=== PATIENT | female | born 1945 | race Caucasian/White ===

== ENCOUNTER 2019-09-30 14:14 | Inpatient (IN) | payer OTHER ==
--- OUTSIDE RECORDS SUMMARY | 2019-09-30 14:25 | XMS REPORT | Clinical Summary ---
:1945 Author Organization [facility] Address [address] [place] [address] Care Team Providers Name Role Phone Jorden Milton MD Primary Care Provider Allergies Active Allergy Reactions Severity Noted Date Comments Atorvastatin 06/16/2016 Muscle cramps Prednisone 06/16/2016 Fluid retention Medications Medication Sig Dispensed Refills Start Date End Date Status enoxaparin (LOVENOX) Inject 1 mL (100 mg 60 mL 0 7 Active 100 mg/mL Syrg total) subcutaneously every 12 (twelve) hours. famotidine (PEPCID) Take 1 tablet (20 mg 60 tablet 0 7 Active 20 MG tablet total) by mouth 2 (two) times daily. Lactobacillus Take 1 tablet by 60 tablet 0 07/09/2016 Active acidoph-L.bulgar mouth 2 (two) times (FLORANEX) 1 million daily. cell Tab per tablet zinc Apply 30 g topically 1 Tube 0 07/09/2016 Active oxide-petrolatum 2 (two) times daily. 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 Last Filed Vital Signs Not on file Plan of Treatment Not on file Results Not on fileafter 09/29/2018 Insurance Payer Benefit Plan / Group Subscriber ID Type Phone A ddress MEDICARE MEDICARE A B xxxxxxxxxx Medicare Advance Directives For more information, please contact:[id number] [place], [place] [phone] Code Status Date Activated Date Inactivated Comments Full Code 07/05/2016 8:31 PM 07/09/2016 1:31 PM This code status was determined by: Patient Full Code 07/05/2016 8:31 PM 07/05/2016 8:31 PM This code status was determined by: Patient Full Code 06/20/2016 4:55 PM 07/05/2016 5:25 PM This code status was determined by: Patient Full Code 06/16/2016 10:45 AM 06/20/2016 4:55 PM This code status was determined by: Patient
--- OUTSIDE RECORDS SUMMARY | 2019-09-30 14:26 | XMS REPORT | Continuity of Care Document ---
:1945 Author Organization [facility] t Address [address] [place] [address] Care Team Providers Name Role Phone Jorden Milton MD Primary Care Physician OSMANY WARD Attending Clinician Unavailable YAO SIMON Attending Clinician Unavail able OSMANY WARD Admitting Clinician Unavailable FERMIN KHAN Admitting Clinician Unavailable YAO SIMON Admitting Clinician Unavail able Problems Condition Condition Condition Status Onset Resolution Last Treating Co mments Source Name Details Category Date Date Treatment Clinician Date Essential Essential Disease Active [facility] hypertensi hypertensi -23 Rubi kes - on on 00:00: Medical 00 [place] Oropharyng Oropharyng Disease Active [facility] dysphagia dysphagia 00:00: Medi [place] 00 [place] Cerebral Cerebral Disease [facility] - [facility] 00 [place] Acute Acute Disease Active [facility] encephalop encephalop -23 Rub[facility] kes - athy athy 00:00: Medical 00 [place] Stroke Stroke Disease Active [facility] (cerebrum[facility] (cerebrum) 4- Rubi kes - 00:00: Medical 00 Center Allergies, Adverse Reactions, Alerts Allergy Allergy Status Severity Reaction(s) Onset Inactive Treating Comm ents Source Name Type Date Date Clinician Atorvast Propensi Active Muscle [facility] at[facility] to 4-22 cramps [facility] - adverse 00:00: Medical reaction 00 [place] s Predniso Propensi Active Fluid [facility] ne [facility] to 4-22 retention [facility] - adverse 00:00: Medical reaction 00 Center s Social History Social Habit Start Date Stop Date Quantity Comments Source Sex Assigned At [facility] Alcohol Comment 2016-06-16 2016-06-16 with dinner KARTHIK Mcdermott ukes - 00:00:00 00:00:00 occasionally [facility] Smoking Status Start Date Stop Date Source Never smoker [facility] edical [place] Medications Ordered Filled Start Stop Current Ordering Indication Dosage Frequency Signature Comments Components Source Medication Medication Date Date Medication? Clinician (SIG) Name Name enoxaparin Yes 100mg Inject [address] (LOVENOX) 5-15 mL (100 mg Luke s - 100 mg/mL 00:00: total) Medica l Syrg 00 subcutaneo Center usly every 12 (twelve) hours. famotidine Yes 20mg Q.5D Take 1 [facility] (PEPCID) 20 5-15 tablet (20 Rubi kes - MG tablet 00:00: mg total) Med ical 00 by mouth 2 Center (two) times daily. Lactobacill Yes 1{tbl} Q.5D Take [address] us 5-15 tablet by [facility] - acidoph-L.b 00:00: mouth 2 Med ical ulgar 00 (two) Center (FLORANEX) times 1 million daily. cell Tab per tablet zinc Yes 30g Q.5D Apply [address] [facility] oxide-lazara 5-15 topically Pete es - latum 00:00: 2 (two) Medical (CRITIC-AID 00 times Center ) 20-51 % daily. Pste topical paste Immunizations Ordered Immunization Filled Immunization Date Status Commen ts Source Name Name Pneumococcal 2016-07-09 Completed [facility] - Polysaccharide 00:00:00 Medical Ce nter (Pneumovax) Procedures This patient has no known procedures. Results Test Description Test Time Test Comments Results Result Comments Source URINE CULTURE 2016-07-10 08:38:00 Test Item Value Reference Range Interpretation Comme nts CULTURE (BEAKER) (test code = ENTEROCOCCUS SPECIES A <10,000 col/mL Enterococcus 1095) species Ampicillin (test code = 26) S Ciprofloxacin (test code = 7) Clindamycin (test code = 10) Daptomycin (test code = 59) Erythromycin (test code = 4) Gentamicin (test code = 18) Gentamicin High Level Synergy (test code = 241) Levofloxacin (test code = 22) Linezolid (test code = 40) S Moxifloxacin (test code = 36) Nitrofurantoin (test code = 23) S Oxacillin (test code = 14) Rifampin (test code = 43) Streptomycin High Level Synergy (test code = 242) Tetracycline (test code = 2) S Tigecycline (test code = 133) Trimethoprim + Sulfamethoxazole (test code = 47) Vancomycin (test code = 13) S POCT-GLUCOSE [id number] 11:06:00 Test Item Value Reference Range Interpretation Comments POC-GLUCOSE METER 224 mg/dL 70-110 H TESTED AT [facility] 6720 (BEAKER) (test code = [place]AR[place] [place] 1538) [id number] BASIC METABOLIC [id number] 05:51:00 Test Item Value Reference Range Interpretation Comments SODIUM (BEAKER) 138 meq/L 136-145 (test code = 381) POTASSIUM (BEAKER) 4.6 meq/L 3.5-5.1 (test code = 379) CHLORIDE (BEAKER) 105 meq/L 98-107 (test code = 382) CO2 (BEAKER) (test 26 meq/L 22-29 code = 355) BLOOD UREA NITROGEN 20 mg/dL 7-21 (BEAKER) (test code = 354) CREATININE (BEAKER) 0.80 mg/dL 0.57-1.25 (test code = 358) GLUCOSE RANDOM 165 mg/dL 70-105 H (BEAKER) (test code = 652) CALCIUM (BEAKER) 9.1 mg/dL 8.4-10.2 (test code = 697) EGFR (BEAKER) (test 71 mL/min/1.73 ESTIMA GONZALEZ GFR IS code = 1092) sq m NOT ACCURATE CREATININE CLEARANCE IN PREDICTING GLOMERULAR FILTRATION RATE . ESTIMATED GFR I S NOT APPLICABLE FOR DIALYSIS PATIEN TS. CBC W/PLT COUNT & AUTO [id number] 05:37:00 Test Item Value Reference Range Interpretation Comments WHITE BLOOD CELL COUNT (BEAKER) 15.2 K/ L 4.0-10.0 H (test code = 775) RED BLOOD CELL COUNT (BEAKER) 3.95 M/ L 4.00-5.00 L (test code = 761) HEMOGLOBIN (BEAKER) (test code = 12.2 GM/DL 12.0-15.0 410) HEMATOCRIT (BEAKER) (test code = 37.4 % 36.0-45.0 411) MEAN CORPUSCULAR VOLUME (BEAKER) 94.8 fL 82.0-99.0 (test code = 753) MEAN CORPUSCULAR HEMOGLOBIN 30.8 pg 27.0-33.0 (BEAKER) (test code = 751) MEAN CORPUSCULAR HEMOGLOBIN CONC 32.5 GM/DL 32.0-36.0 (BEAKER) (test code = 752) RED CELL DISTRIBUTION WIDTH 12.7 % 10.3-14.2 (BEAKER) (test code = 412) PLATELET COUNT (BEAKER) (test 293 K/CU MM 150-430 code = 756) MEAN PLATELET VOLUME (BEAKER) 7.4 fL 6.5-10.5 (test code = 754) NUCLEATED RED BLOOD CELLS 0 /100 WBC 0-0 (BEAKER) (test code = 413) NEUTROPHILS RELATIVE PERCENT 68 % (BEAKER) (test code = 429) LYMPHOCYTES RELATIVE PERCENT 19 % (BEAKER) (test code = 430) MONOCYTES RELATIVE PERCENT 12 % (BEAKER) (test code = 431) EOSINOPHILS RELATIVE PERCENT 1 % (BEAKER) (test code = 432) BASOPHILS RELATIVE PERCENT 0 % (BEAKER) (test code = 437) NEUTROPHILS ABSOLUTE COUNT 10.30 K/ L 1.80-8.00 H (BEAKER) (test code = 670) LYMPHOCYTES ABSOLUTE COUNT 2.85 K/ L 1.48-4.50 (BEAKER) (test code = 414) MONOCYTES ABSOLUTE COUNT (BEAKER) 1.81 K/ L 0.00-1.30 H (test code = 415) EOSINOPHILS ABSOLUTE COUNT 0.21 K/ L 0.00-0.50 (BEAKER) (test code = 416) BASOPHILS ABSOLUTE COUNT (BEAKER) 0.05 K/ L 0.00-0.20 (test code = 417) 0.00POCT-GLUCOSE [id number] 20:33:00 Test Item Value Reference Range Interpretation Comments POC-GLUCOSE METER 177 mg/dL 70-110 H TESTED AT [facility] 6720 [facility] (test code = [place] 1538) [id number] POCT-GLUCOSE [id number] 16:45:00 Test Item Value Reference Range Interpretation Comments POC-GLUCOSE METER 192 mg/dL 70-110 H TESTED AT [facility] 6720 (BEAKER) (test code = FR[address] Pierce [place] 1538) [id number] POCT-GLUCOSE [id number] 12:00:00 Test Item Value Reference Range Interpretation Comments POC-GLUCOSE METER 238 mg/dL 70-110 H TESTED AT [facility] 6720 (BEAKER) (test code = FR[address] [place] 1538) [id number] POCT-GLUCOSE [id number] 06:31:00 Test Item Value Reference Range Interpretation Comments POC-GLUCOSE METER 222 mg/dL 70-110 H TESTED AT [facility] 6720 (BEAKER) (test code = FR[address] [place] 1538) [id number] COMPREHENSIVE METABOLIC [id number] 05:48:00 Test Item Value Reference Range Interpretation Comments TOTAL PROTEIN 5.9 gm/dL 6.0-8.3 L (BEAKER) (test code = 770) ALBUMIN (BEAKER) 2.8 g/dL 3.5-5.0 L (test code = 1145) ALKALINE PHOSPHATASE 108 U/L 40-150 (BEAKER) (test code = 346) BILIRUBIN TOTAL 0.4 mg/dL 0.2-1.2 (BEAKER) (test code = 377) SODIUM (BEAKER) (test 137 meq/L 136-145 code = 381) POTASSIUM (BEAKER) 4.2 meq/L 3.5-5.1 (test code = 379) CHLORIDE (BEAKER) 105 meq/L 98-107 (test code = 382) CO2 (BEAKER) (test 25 meq/L 22-29 code = 355) BLOOD UREA NITROGEN 18 mg/dL 7-21 (BEAKER) (test code = 354) CREATININE (BEAKER) 0.79 mg/dL 0.57-1.25 (test code = 358) GLUCOSE RANDOM 121 mg/dL 70-105 H (BEAKER) (test code = 652) CALCIUM (BEAKER) 8.8 mg/dL 8.4-10.2 (test code = 697) AST (SGOT) (BEAKER) 17 U/L 5-34 (test code = 353) ALT (SGPT) (BEAKER) 25 U/L 6-55 (test code = 347) EGFR (BEAKER) (test 72 mL/min/1.73 ESTIMA GONZALEZ GFR IS code = 1092) sq m NOT ACCURATE CREATININE CLEARANCE IN PREDICTING GLOMERULAR FILTRATION RATE . ESTIMATED GFR I S NOT APPLICABLE FOR DIALYSIS PATIEN TS. CBC W/PLT COUNT & AUTO [id number] 05:10:00 Test Item Value Reference Range Interpretation Comments WHITE BLOOD CELL COUNT (BEAKER) 16.0 K/ L 4.0-10.0 H (test code = 775) RED BLOOD CELL COUNT (BEAKER) 3.91 M/ L 4.00-5.00 L (test code = 761) HEMOGLOBIN (BEAKER) (test code = 12.3 GM/DL 12.0-15.0 410) HEMATOCRIT (BEAKER) (test code = 37.0 % 36.0-45.0 411) MEAN CORPUSCULAR VOLUME (BEAKER) 94.5 fL 82.0-99.0 (test code = 753) MEAN CORPUSCULAR HEMOGLOBIN 31.3 pg 27.0-33.0 (BEAKER) (test code = 751) MEAN CORPUSCULAR HEMOGLOBIN CONC 33.1 GM/DL 32.0-36.0 (BEAKER) (test code = 752) RED CELL DISTRIBUTION WIDTH 12.8 % 10.3-14.2 (BEAKER) (test code = 412) PLATELET COUNT (BEAKER) (test 296 K/CU MM 150-430 code = 756) MEAN PLATELET VOLUME (BEAKER) 7.2 fL 6.5-10.5 (test code = 754) NUCLEATED RED BLOOD CELLS 0 /100 WBC 0-0 (BEAKER) (test code = 413) NEUTROPHILS RELATIVE PERCENT 69 % (BEAKER) (test code = 429) LYMPHOCYTES RELATIVE PERCENT 18 % (BEAKER) (test code = 430) MONOCYTES RELATIVE PERCENT 12 % (BEAKER) (test code = 431) EOSINOPHILS RELATIVE PERCENT 1 % (BEAKER) (test code = 432) BASOPHILS RELATIVE PERCENT 0 % (BEAKER) (test code = 437) NEUTROPHILS ABSOLUTE COUNT 11.00 K/ L 1.80-8.00 H (BEAKER) (test code = 670) LYMPHOCYTES ABSOLUTE COUNT 2.90 K/ L 1.48-4.50 (BEAKER) (test code = 414) MONOCYTES ABSOLUTE COUNT (BEAKER) 1.89 K/ L 0.00-1.30 H (test code = 415) EOSINOPHILS ABSOLUTE COUNT 0.15 K/ L 0.00-0.50 (BEAKER) (test code = 416) BASOPHILS ABSOLUTE COUNT (BEAKER) 0.07 K/ L 0.00-0.20 (test code = 417) 0.00POCT-GLUCOSE [id number] 20:59:00 Test Item Value Reference Range Interpretation Comments POC-GLUCOSE METER 210 mg/dL 70-110 H TESTED AT [place] [address] [facility] (test code = [employer] [facility] Kari [facility] 1538) [id number] POCT-GLUCOSE [id number] 15:57:00 Test Item Value Reference Range Interpretation Comments POC-GLUCOSE METER 196 mg/dL 70-110 H TESTED AT [place] [address] ([facility]) (test code = [facility] 1538) [id number] POCT-GLUCOSE [id number] 12:12:00 Test Item Value Reference Range Interpretation Comments POC-GLUCOSE METER 187 mg/dL 70-110 H TESTED AT [place] [address] ([facility]) (test code = [facility] 1538) [id number] COMPREHENSIVE METABOLIC [id number] 08:02:00 Test Item Value Reference Range Interpretation Comments TOTAL PROTEIN 5.8 gm/dL 6.0-8.3 L (BEAKER) (test code = 770) ALBUMIN (BEAKER) 2.8 g/dL 3.5-5.0 L (test code = 1145) ALKALINE PHOSPHATASE 109 U/L 40-150 (BEAKER) (test code = 346) BILIRUBIN TOTAL 0.4 mg/dL 0.2-1.2 (BEAKER) (test code = 377) SODIUM (BEAKER) (test 138 meq/L 136-145 code = 381) POTASSIUM (BEAKER) 4.0 meq/L 3.5-5.1 (test code = 379) CHLORIDE (BEAKER) 107 meq/L 98-107 (test code = 382) CO2 (BEAKER) (test 24 meq/L 22-29 code = 355) BLOOD UREA NITROGEN 19 mg/dL 7-21 (BEAKER) (test code = 354) CREATININE (BEAKER) 0.76 mg/dL 0.57-1.25 (test code = 358) GLUCOSE RANDOM 170 mg/dL 70-105 H (BEAKER) (test code = 652) CALCIUM (BEAKER) 8.6 mg/dL 8.4-10.2 (test code = 697) AST (SGOT) (BEAKER) 19 U/L 5-34 (test code = 353) ALT (SGPT) (BEAKER) 30 U/L 6-55 (test code = 347) EGFR (BEAKER) (test 75 mL/min/1.73 ESTIMA GONZALEZ GFR IS code = 1092) sq m NOT ACCURATE CREATININE CLEARANCE IN PREDICTING GLOMERULAR FILTRATION RATE . ESTIMATED GFR I S NOT APPLICABLE FOR DIALYSIS PATIEN TS. CBC W/PLT COUNT & AUTO [id number] 07:54:00 Test Item Value Reference Range Interpretation Comments WHITE BLOOD CELL COUNT (BEAKER) 15.0 K/ L 4.0-10.0 H (test code = 775) RED BLOOD CELL COUNT (BEAKER) 3.88 M/ L 4.00-5.00 L (test code = 761) HEMOGLOBIN (BEAKER) (test code = 12.1 GM/DL 12.0-15.0 410) HEMATOCRIT (BEAKER) (test code = 36.6 % 36.0-45.0 411) MEAN CORPUSCULAR VOLUME (BEAKER) 94.5 fL 82.0-99.0 (test code = 753) MEAN CORPUSCULAR HEMOGLOBIN 31.2 pg 27.0-33.0 (BEAKER) (test code = 751) MEAN CORPUSCULAR HEMOGLOBIN CONC 33.1 GM/DL 32.0-36.0 (BEAKER) (test code = 752) RED CELL DISTRIBUTION WIDTH 12.8 % 10.3-14.2 (BEAKER) (test code = 412) PLATELET COUNT (BEAKER) (test 294 K/CU MM 150-430 code = 756) MEAN PLATELET VOLUME (BEAKER) 7.1 fL 6.5-10.5 (test code = 754) NUCLEATED RED BLOOD CELLS 0 /100 WBC 0-0 (BEAKER) (test code = 413) NEUTROPHILS RELATIVE PERCENT 73 % (BEAKER) (test code = 429) LYMPHOCYTES RELATIVE PERCENT 15 % (BEAKER) (test code = 430) MONOCYTES RELATIVE PERCENT 11 % (BEAKER) (test code = 431) EOSINOPHILS RELATIVE PERCENT 1 % (BEAKER) (test code = 432) BASOPHILS RELATIVE PERCENT 0 % (BEAKER) (test code = 437) NEUTROPHILS ABSOLUTE COUNT 10.90 K/ L 1.80-8.00 H (BEAKER) (test code = 670) LYMPHOCYTES ABSOLUTE COUNT 2.17 K/ L 1.48-4.50 (BEAKER) (test code = 414) MONOCYTES ABSOLUTE COUNT (BEAKER) 1.68 K/ L 0.00-1.30 H (test code = 415) EOSINOPHILS ABSOLUTE COUNT 0.13 K/ L 0.00-0.50 (BEAKER) (test code = 416) BASOPHILS ABSOLUTE COUNT (BEAKER) 0.04 K/ L 0.00-0.20 (test code = 417) 0.00POCT-GLUCOSE [id number] 06:51:00 Test Item Value Reference Range Interpretation Comments POC-GLUCOSE METER 194 mg/dL 70-110 H TESTED AT [place] [address] [facility] (test code = FR[place] Pierce [facility] 1538) [id number] POCT-GLUCOSE [id number] 20:28:00 Test Item Value Reference Range Interpretation Comments POC-GLUCOSE METER 161 mg/dL 70-110 H TESTED AT [place] [address] ([facility] (test code = FRANCIS Pierce [facility] 1538) [id number] URINALYSIS W/ [id number] 19:51:00 Test Item Value Reference Range Interpretation Comments COLOR (BEAKER) (test code Yellow = 470) CLARITY (BEAKER) (test Clear code = 469) SPECIFIC GRAVITY UA 1.024 1.001-1.035 (BEAKER) (test code = 468) PH UA (BEAKER) (test code 5.5 5.0-8.0 = 467) PROTEIN UA (BEAKER) (test 20 mg/dL Negative A code = 464) GLUCOSE UA (BEAKER) (test Negative Negative code = 365) KETONES UA (BEAKER) (test Negative Negative code = 371) BILIRUBIN UA (BEAKER) Negative Negative (test code = 462) BLOOD UA (BEAKER) (test Negative Negative code = 461) NITRITE UA (BEAKER) (test Negative Negative code = 465) LEUKOCYTE ESTERASE UA Large Negative A (BEAKER) (test code = 466) UROBILINOGEN UA (BEAKER) 0.2 mg/dL 0.2-1.0 (test code = 463) RBC UA (BEAKER) (test 1 /HPF code = 519) WBC UA (BEAKER) (test 51 /HPF code = 520) MUCUS (BEAKER) (test code Many = 1574) SOURCE(BEAKER) (test code Urine, Straight = 8620) Catheter POCT-GLUCOSE [id number] 16:01:00 Test Item Value Reference Range Interpretation Comments POC-GLUCOSE METER 166 mg/dL 70-110 H TESTED AT [facility] [address] [facility] (test code = [facility] 1538) [id number] POCT-GLUCOSE [id number] 11:13:00 Test Item Value Reference Range Interpretation Comments POC-GLUCOSE METER 182 mg/dL 70-110 H TESTED AT [place] [address] ([facility]) (test code = [facility] 1538) [address] POCT-GLUCOSE [id number] 07:05:00 Test Item Value Reference Range Interpretation Comments POC-GLUCOSE METER 125 mg/dL 70-110 H TESTED AT [place] [address] ([facility]) (test code = [facility] 1538) [id number] CBC W/PLT COUNT & AUTO [id number] 06:08:00 Test Item Value Reference Range Interpretation Comments WHITE BLOOD CELL COUNT (BEAKER) 20.1 K/ L 4.0-10.0 H (test code = 775) RED BLOOD CELL COUNT (BEAKER) 4.02 M/ L 4.00-5.00 (test code = 761) HEMOGLOBIN (BEAKER) (test code = 12.2 GM/DL 12.0-15.0 410) HEMATOCRIT (BEAKER) (test code = 37.2 % 36.0-45.0 411) MEAN CORPUSCULAR VOLUME (BEAKER) 92.6 fL 82.0-99.0 (test code = 753) MEAN CORPUSCULAR HEMOGLOBIN 30.3 pg 27.0-33.0 (BEAKER) (test code = 751) MEAN CORPUSCULAR HEMOGLOBIN CONC 32.7 GM/DL 32.0-36.0 (BEAKER) (test code = 752) RED CELL DISTRIBUTION WIDTH 13.3 % 10.3-14.2 (BEAKER) (test code = 412) PLATELET COUNT (BEAKER) (test 321 K/CU MM 150-430 code = 756) MEAN PLATELET VOLUME (BEAKER) 6.8 fL 6.5-10.5 (test code = 754) NUCLEATED RED BLOOD CELLS 0 /100 WBC 0-0 (BEAKER) (test code = 413) NEUTROPHILS RELATIVE PERCENT 81 % (BEAKER) (test code = 429) LYMPHOCYTES RELATIVE PERCENT 11 % (BEAKER) (test code = 430) MONOCYTES RELATIVE PERCENT 7 % (BEAKER) (test code = 431) EOSINOPHILS RELATIVE PERCENT 0 % (BEAKER) (test code = 432) BASOPHILS RELATIVE PERCENT 0 % (BEAKER) (test code = 437) NEUTROPHILS ABSOLUTE COUNT 16.20 K/ L 1.80-8.00 H (BEAKER) (test code = 670) LYMPHOCYTES ABSOLUTE COUNT 2.23 K/ L 1.48-4.50 (BEAKER) (test code = 414) MONOCYTES ABSOLUTE COUNT (BEAKER) 1.46 K/ L 0.00-1.30 H (test code = 415) EOSINOPHILS ABSOLUTE COUNT 0.07 K/ L 0.00-0.50 (BEAKER) (test code = 416) BASOPHILS ABSOLUTE COUNT (BEAKER) 0.05 K/ L 0.00-0.20 (test code = 417) 0.00BASIC METABOLIC [id number] 06:03:00 Test Item Value Reference Range Interpretation Comments SODIUM (BEAKER) 137 meq/L 136-145 (test code = 381) POTASSIUM (BEAKER) 4.0 meq/L 3.5-5.1 (test code = 379) CHLORIDE (BEAKER) 106 meq/L 98-107 (test code = 382) CO2 (BEAKER) (test 24 meq/L 22-29 code = 355) BLOOD UREA NITROGEN 14 mg/dL 7-21 (BEAKER) (test code = 354) CREATININE (BEAKER) 0.78 mg/dL 0.57-1.25 (test code = 358) GLUCOSE RANDOM 126 mg/dL 70-105 H (BEAKER) (test code = 652) CALCIUM (BEAKER) 9.0 mg/dL 8.4-10.2 (test code = 697) EGFR (BEAKER) (test 73 mL/min/1.73 ESTIMA GONZALEZ GFR IS code = 1092) sq m NOT ACCURATE CREATININE CLEARANCE IN PREDICTING GLOMERULAR FILTRATION RATE . ESTIMATED GFR I S NOT APPLICABLE FOR DIALYSIS PATIEN TS. POCT-GLUCOSE [id number] 20:20:00 Test Item Value Reference Range Interpretation Comments POC-GLUCOSE METER 95 mg/dL 70-110 TESTED AT [place] [address] ([facility]) (test code = FRANCIS Pierce [facility] [address] 1538) POCT-GLUCOSE [id number] 16:20:00 Test Item Value Reference Range Interpretation Comments POC-GLUCOSE METER 108 mg/dL 70-110 TESTED AT [place] [address] ([facility]) (test code = [facility] Kari [facility] 1538) [id number] POCT-GLUCOSE [id number] 10:57:00 Test Item Value Reference Range Interpretation Comments POC-GLUCOSE METER 176 mg/dL 70-110 H TESTED AT [place] [address] ([facility]) (test code = [facility] Kari [facility] 1538) [id number] PROTHROMBIN [id number] 05:52:00 Test Item Value Reference Range Interpretation Comments PROTIME ([facility]) (test code = 13.0 seconds 11.7-14.7 759) INR ([facility]) (test code = 370) 1.0 <=5.9 RECOMMENDED COUMADIN/WARFARIN INR THERAPY RANGESSTANDARD DOSE: 2.0 - 3.0 Includes: PROPHYLAXIS forvenous thrombosis, systemic embolization; TREATMENT for venous thrombosis and/or pulmonary embolus.HIGH RISK: Target INR is 2.5-3.5 for patients with mechanical heart valves.POCT-GLUCOSE [id number] 05:43:00 Test Item Value Reference Range Interpretation Comments POC-GLUCOSE METER 118 mg/dL 70-110 H TESTED AT [place] [address] ([facility]) (test code = FRANCIS Pierce [facility] 1538) [id number] POCT-GLUCOSE [id number] 20:30:00 Test Item Value Reference Range Interpretation Comments POC-GLUCOSE METER 122 mg/dL 70-110 H TESTED AT [place] [address] ([facility]) (test code = [facility] Kari [facility] 1538) [id number] POCT-GLUCOSE [id number] 16:20:00 Test Item Value Reference Range Interpretation Comments POC-GLUCOSE METER 117 mg/dL 70-110 H TESTED AT [place] [address] ([facility]) (test code = [facility] 1538) [id number] POCT-GLUCOSE [id number] 12:01:00 Test Item Value Reference Range Interpretation Comments POC-GLUCOSE METER 118 mg/dL 70-110 H TESTED AT [place] [address] ([facility]) (test code = FRANCIS Pierce [place] 1538) [id number] POCT-GLUCOSE [id number] 06:53:00 Test Item Value Reference Range Interpretation Comments POC-GLUCOSE METER 124 mg/dL 70-110 H TESTED AT [place] [address] ([facility]) (test code = FRANCIS Pierce [place] 1538) [id number] POCT-GLUCOSE [id number] 21:11:00 Test Item Value Reference Range Interpretation Comments POC-GLUCOSE METER 139 mg/dL 70-110 H TESTED AT [place] [address] ([facility]) (test code = FRANCIS Pierce [place] 1538) [id number] POCT-GLUCOSE [id number] 17:15:00 Test Item Value Reference Range Interpretation Comments POC-GLUCOSE METER 95 mg/dL 70-110 TESTED AT [place] [address] ([facility]) (test code = [place] [address]) POCT-GLUCOSE [id number] 11:21:00 Test Item Value Reference Range Interpretation Comments POC-GLUCOSE METER 157 mg/dL 70-110 H TESTED AT [place] [address] ([facility]) (test code = FRANCIS Pierce [place] 1538) [id number] POCT-GLUCOSE [id number] 06:40:00 Test Item Value Reference Range Interpretation Comments POC-GLUCOSE METER 121 mg/dL 70-110 H TESTED AT [place] [address] ([facility]) (test code = FRANCIS Pierce [place] 1538) [id number] POCT-GLUCOSE [id number] 21:01:00 Test Item Value Reference Range Interpretation Comments POC-GLUCOSE METER 151 mg/dL 70-110 H TESTED AT [place] [address] ([facility]) (test code = FRANCIS Pierce [place] 1538) [id number] POCT-GLUCOSE [id number] 16:26:00 Test Item Value Reference Range Interpretation Comments POC-GLUCOSE METER 139 mg/dL 70-110 H TESTED AT [place] [address] ([facility]) (test code = FRANCIS Pierce [place] 1538) [id number] POCT-GLUCOSE [id number] 11:04:00 Test Item Value Reference Range Interpretation Comments POC-GLUCOSE METER 241 mg/dL 70-110 H TESTED AT [facility] (BEAKER) (test code = FRANCIS Pierce [place] 1538) [id number] POCT-GLUCOSE [id number] 06:16:00 Test Item Value Reference Range Interpretation Comments POC-GLUCOSE METER 190 mg/dL 70-110 H TESTED AT [facility] (BEAKER) (test code = FRANCIS Pierce [place] 1538) [id number] BASIC METABOLIC [id number] 04:52:00 Test Item Value Reference Range Interpretation Comments SODIUM (BEAKER) 138 meq/L 136-145 (test code = 381) POTASSIUM (BEAKER) 3.9 meq/L 3.5-5.1 (test code = 379) CHLORIDE (BEAKER) 108 meq/L 98-107 H (test code = 382) CO2 (BEAKER) (test 23 meq/L 22-29 code = 355) BLOOD UREA NITROGEN 16 mg/dL 7-21 (BEAKER) (test code = 354) CREATININE (BEAKER) 0.81 mg/dL 0.57-1.25 (test code = 358) GLUCOSE RANDOM 174 mg/dL 70-105 H (BEAKER) (test code = 652) CALCIUM (BEAKER) 9.1 mg/dL 8.4-10.2 (test code = 697) EGFR (BEAKER) (test 70 mL/min/1.73 ESTIMA GONZALEZ GFR IS code = 1092) sq m NOT ACCURATE CREATININE CLEARANCE IN PREDICTING GLOMERULAR FILTRATION RATE . ESTIMATED GFR I S NOT APPLICABLE FOR DIALYSIS PATIEN TS. CBC W/PLT COUNT & AUTO [id number] 04:33:00 Test Item Value Reference Range Interpretation Comments WHITE BLOOD CELL COUNT (BEAKER) 15.5 K/ L 4.0-10.0 H (test code = 775) RED BLOOD CELL COUNT (BEAKER) 3.99 M/ L 4.00-5.00 L (test code = 761) HEMOGLOBIN (BEAKER) (test code = 12.1 GM/DL 12.0-15.0 410) HEMATOCRIT (BEAKER) (test code = 37.6 % 36.0-45.0 411) MEAN CORPUSCULAR VOLUME (BEAKER) 94.3 fL 82.0-99.0 (test code = 753) MEAN CORPUSCULAR HEMOGLOBIN 30.5 pg 27.0-33.0 (BEAKER) (test code = 751) MEAN CORPUSCULAR HEMOGLOBIN CONC 32.3 GM/DL 32.0-36.0 (BEAKER) (test code = 752) RED CELL DISTRIBUTION WIDTH 12.5 % 10.3-14.2 (BEAKER) (test code = 412) PLATELET COUNT (BEAKER) (test 339 K/CU MM 150-430 code = 756) MEAN PLATELET VOLUME (BEAKER) 6.9 fL 6.5-10.5 (test code = 754) NUCLEATED RED BLOOD CELLS 0 /100 WBC 0-0 (BEAKER) (test code = 413) NEUTROPHILS RELATIVE PERCENT 70 % (BEAKER) (test code = 429) LYMPHOCYTES RELATIVE PERCENT 19 % (BEAKER) (test code = 430) MONOCYTES RELATIVE PERCENT 9 % (BEAKER) (test code = 431) EOSINOPHILS RELATIVE PERCENT 2 % (BEAKER) (test code = 432) BASOPHILS RELATIVE PERCENT 0 % (BEAKER) (test code = 437) NEUTROPHILS ABSOLUTE COUNT 10.80 K/ L 1.80-8.00 H (BEAKER) (test code = 670) LYMPHOCYTES ABSOLUTE COUNT 3.01 K/ L 1.48-4.50 (BEAKER) (test code = 414) MONOCYTES ABSOLUTE COUNT (BEAKER) 1.37 K/ L 0.00-1.30 H (test code = 415) EOSINOPHILS ABSOLUTE COUNT 0.24 K/ L 0.00-0.50 (BEAKER) (test code = 416) BASOPHILS ABSOLUTE COUNT (BEAKER) 0.04 K/ L 0.00-0.20 (test code = 417) 0.00POCT-GLUCOSE [id number] 00:05:00 Test Item Value Reference Range Interpretation Comments POC-GLUCOSE METER 168 mg/dL 70-110 H TESTED AT [place] [address] ([facility]) (test code = [place] 1538) 25[address] POCT-GLUCOSE [id number] 16:40:00 Test Item Value Reference Range Interpretation Comments POC-GLUCOSE METER 107 mg/dL 70-110 TESTED AT [place] [address] ([facility]) (test code = [place] 1538) 48[address] POCT-GLUCOSE [id number] 11:26:00 Test Item Value Reference Range Interpretation Comments POC-GLUCOSE METER 209 mg/dL 70-110 H TESTED AT [place] [address] ([facility]) (test code = [place] 1538) 06[address] POCT-GLUCOSE [id number] 06:37:00 Test Item Value Reference Range Interpretation Comments POC-GLUCOSE METER 171 mg/dL 70-110 H TESTED AT [place] [address] ([facility]) (test code = FRANCIS Pierce [place] 1538) 48[address] POCT-GLUCOSE [id number] 20:41:00 Test Item Value Reference Range Interpretation Comments POC-GLUCOSE METER 126 mg/dL 70-110 H TESTED AT [place] [address] ([facility]) (test code = FRANCIS Pierce [place] 1538) 986[address] POCT-GLUCOSE [id number] 20:40:00 Test Item Value Reference Range Interpretation Comments POC-GLUCOSE METER 156 mg/dL 70-110 H TESTED AT [place] [address] ([facility]) (test code = FRANCIS [place] 1538) 28347 POCT-GLUCOSE [id number] 12:59:00 Test Item Value Reference Range Interpretation Comments POC-GLUCOSE METER 145 mg/dL 70-110 H TESTED AT [place] [address] ([facility]) (test code = FRANCIS Pierce [place] 1538) 14018 POCT-GLUCOSE [id number] 06:05:00 Test Item Value Reference Range Interpretation Comments POC-GLUCOSE METER 216 mg/dL 70-110 H TESTED AT [place] [address] ([facility]) (test code = FRANCIS Pierce [place] 1538) 53039 POCT-GLUCOSE [id number] 00:00:00 Test Item Value Reference Range Interpretation Comments POC-GLUCOSE METER 166 mg/dL 70-110 H TESTED AT [place] [address] ([facility]) (test code = FRANCIS Pierce [place] 1538) 00275 POCT-GLUCOSE [id number] 16:46:00 Test Item Value Reference Range Interpretation Comments POC-GLUCOSE METER 110 mg/dL 70-110 TESTED AT [place] [address] ([facility]) (test code = FRANCIS Pierce [place] 1538) 28975 POCT-GLUCOSE [id number] 12:05:00 Test Item Value Reference Range Interpretation Comments POC-GLUCOSE METER 144 mg/dL 70-110 H TESTED AT [place] [address] ([facility]) (test code = FRANCIS Pierce [place] 1538) 7[address] POCT-GLUCOSE [id number] 06:29:00 Test Item Value Reference Range Interpretation Comments POC-GLUCOSE METER 185 mg/dL 70-110 H TESTED AT [place] [address] ([facility]) (test code = [place] 1538) 70079 POCT-GLUCOSE [id number] 23:55:00 Test Item Value Reference Range Interpretation Comments POC-GLUCOSE METER 148 mg/dL 70-110 H TESTED AT [place] [address] ([facility]) (test code = FRANCIS Pierce [place] 1538) 92288 POCT-GLUCOSE [id number] 16:52:00 Test Item Value Reference Range Interpretation Comments POC-GLUCOSE METER 122 mg/dL 70-110 H TESTED AT [place] [address] ([facility]) (test code = FRANCIS Pierce [facility] 1538) 6[address]60 POCT-GLUCOSE [id number] 12:52:00 Test Item Value Reference Range Interpretation Comments POC-GLUCOSE METER 153 mg/dL 70-110 H TESTED AT [place] [address] ([facility]) (test code = FRANCIS Pierce [facility] 1538) 24035 POCT-GLUCOSE [id number] 06:18:00 Test Item Value Reference Range Interpretation Comments POC-GLUCOSE METER 190 mg/dL 70-110 H TESTED AT [place] [address] ([facility]) (test code = FRANCIS Pierce [facility] 1538) 61985 POCT-GLUCOSE [id number] 23:54:00 Test Item Value Reference Range Interpretation Comments POC-GLUCOSE METER 183 mg/dL 70-110 H TESTED AT [place] [address] ([facility]) (test code = FRANCIS Pierce [facility] 1538) 91261 POCT-GLUCOSE [id number] 16:00:00 Test Item Value Reference Range Interpretation Comments POC-GLUCOSE METER 151 mg/dL 70-110 H TESTED AT [place] [address] ([facility]) (test code = FRANCIS Pierce [place] 1538) 38316 POCT-GLUCOSE [id number] 12:22:00 Test Item Value Reference Range Interpretation Comments POC-GLUCOSE METER 160 mg/dL 70-110 H TESTED AT [place] [address] ([facility]) (test code = FRANCIS Pierce [place] 1538) 43404 POCT-GLUCOSE [id number] 06:19:00 Test Item Value Reference Range Interpretation Comments POC-GLUCOSE METER 172 mg/dL 70-110 H TESTED AT [place] [address] ([facility]) (test code = FRANCIS Pierce [place] 1538) 02386 POCT-GLUCOSE [id number] 00:08:00 Test Item Value Reference Range Interpretation Comments POC-GLUCOSE METER 154 mg/dL 70-110 H TESTED AT [place] [address] ([facility]) (test code = FRANCIS Pierce [place] 1538) 05646 POCT-GLUCOSE [id number] 16:33:00 Test Item Value Reference Range Interpretation Comments POC-GLUCOSE METER 107 mg/dL 70-110 TESTED AT [place] [address] ([facility]) (test code = FRANCIS Pierce [place] 1538) 80668 POCT-GLUCOSE [id number] 11:18:00 Test Item Value Reference Range Interpretation Comments POC-GLUCOSE METER 198 mg/dL 70-110 H TESTED AT [place] [address] ([facility]) (test code = FRANCIS Pierce [place] 1538) 19439 POCT-GLUCOSE [id number] 06:31:00 Test Item Value Reference Range Interpretation Comments POC-GLUCOSE METER 209 mg/dL 70-110 H TESTED AT [place] [address] ([facility]) (test code = FRANCIS Pierce [place] 1538) 29963 POCT-GLUCOSE [id number] 00:18:00 Test Item Value Reference Range Interpretation Comments POC-GLUCOSE METER 173 mg/dL 70-110 H TESTED AT [place] [address] ([facility]) (test code = FRANC[place] 1538) 57562 POCT-GLUCOSE [id number] 20:31:00 Test Item Value Reference Range Interpretation Comments POC-GLUCOSE METER 145 mg/dL 70-110 H TESTED AT [place] [address] ([facility]) (test code = FRANCIS Pierce [place] 1538) 55146 POCT-GLUCOSE [id number] 16:49:00 Test Item Value Reference Range Interpretation Comments POC-GLUCOSE METER 153 mg/dL 70-110 H TESTED AT [place] [address] ([facility]) (test code = FRANCIS [place] 1538) 23491 POCT-GLUCOSE [id number] 11:40:00 Test Item Value Reference Range Interpretation Comments POC-GLUCOSE METER 144 mg/dL 70-110 H TESTED AT [facility] 6720 (BEAKER) (test code = [place] 1538) 688[address] BASIC METABOLIC [id number] 06:52:00 Test Item Value Reference Range Interpretation Comments SODIUM (BEAKER) 139 meq/L 136-145 (test code = 381) POTASSIUM (BEAKER) 4.3 meq/L 3.5-5.1 (test code = 379) CHLORIDE (BEAKER) 107 meq/L 98-107 (test code = 382) CO2 (BEAKER) (test 24 meq/L 22-29 code = 355) BLOOD UREA NITROGEN 22 mg/dL 7-21 H (BEAKER) (test code = 354) CREATININE (BEAKER) 0.75 mg/dL 0.57-1.25 (test code = 358) GLUCOSE RANDOM 170 mg/dL 70-105 H (BEAKER) (test code = 652) CALCIUM (BEAKER) 8.7 mg/dL 8.4-10.2 (test code = 697) EGFR (BEAKER) (test 77 mL/min/1.73 ESTIMA GONZALEZ GFR IS code = 1092) sq m NOT ACCURATE CREATININE CLEARANCE IN PREDICTING GLOMERULAR FILTRATION RATE . ESTIMATED GFR I S NOT APPLICABLE FOR DIALYSIS PATIEN TS. CBC W/PLT COUNT & AUTO [id number] 06:48:00 Test Item Value Reference Range Interpretation Comments WHITE BLOOD CELL COUNT (BEAKER) 12.4 K/ L 4.0-10.0 H (test code = 775) RED BLOOD CELL COUNT (BEAKER) 4.06 M/ L 4.00-5.00 (test code = 761) HEMOGLOBIN (BEAKER) (test code = 12.3 GM/DL 12.0-15.0 410) HEMATOCRIT (BEAKER) (test code = 38.5 % 36.0-45.0 411) MEAN CORPUSCULAR VOLUME (BEAKER) 94.7 fL 82.0-99.0 (test code = 753) MEAN CORPUSCULAR HEMOGLOBIN 30.3 pg 27.0-33.0 (BEAKER) (test code = 751) MEAN CORPUSCULAR HEMOGLOBIN CONC 32.0 GM/DL 32.0-36.0 (BEAKER) (test code = 752) RED CELL DISTRIBUTION WIDTH 12.3 % 10.3-14.2 (BEAKER) (test code = 412) PLATELET COUNT (BEAKER) (test 243 K/CU MM 150-430 code = 756) MEAN PLATELET VOLUME (BEAKER) 7.5 fL 6.5-10.5 (test code = 754) NUCLEATED RED BLOOD CELLS 0 /100 WBC 0-0 (BEAKER) (test code = 413) NEUTROPHILS RELATIVE PERCENT 63 % (BEAKER) (test code = 429) LYMPHOCYTES RELATIVE PERCENT 18 % (BEAKER) (test code = 430) MONOCYTES RELATIVE PERCENT 16 % (BEAKER) (test code = 431) EOSINOPHILS RELATIVE PERCENT 3 % (BEAKER) (test code = 432) BASOPHILS RELATIVE PERCENT 1 % (BEAKER) (test code = 437) NEUTROPHILS ABSOLUTE COUNT 7.88 K/ L 1.80-8.00 (BEAKER) (test code = 670) LYMPHOCYTES ABSOLUTE COUNT 2.20 K/ L 1.48-4.50 (BEAKER) (test code = 414) MONOCYTES ABSOLUTE COUNT (BEAKER) 1.95 K/ L 0.00-1.30 H (test code = 415) EOSINOPHILS ABSOLUTE COUNT 0.35 K/ L 0.00-0.50 (BEAKER) (test code = 416) BASOPHILS ABSOLUTE COUNT (BEAKER) 0.06 K/ L 0.00-0.20 (test code = 417) 0.00POCT-GLUCOSE [id number] 06:20:00 Test Item Value Reference Range Interpretation Comments POC-GLUCOSE METER 189 mg/dL 70-110 H TESTED AT [place] [address] ([facility] (test code = FRANCIS Pierce [facility] 1538) 73873 POCT-GLUCOSE [id number] 00:12:00 Test Item Value Reference Range Interpretation Comments POC-GLUCOSE METER 187 mg/dL 70-110 H TESTED AT [place] [address] ([facility]) (test code = FRANCIS Pierce [facility] 1538) 77462 POCT-GLUCOSE [id number] 16:30:00 Test Item Value Reference Range Interpretation Comments POC-GLUCOSE METER 146 mg/dL 70-110 H TESTED AT [place] [address] ([facility]) (test code = FRANCIS Pierce [facility] 1538) 52087 POCT-GLUCOSE [id number] 11:07:00 Test Item Value Reference Range Interpretation Comments POC-GLUCOSE METER 165 mg/dL 70-110 H TESTED AT [place] [address] ([facility]) (test code = FR[place] 1538) 77504 POCT-GLUCOSE [id number] 06:10:00 Test Item Value Reference Range Interpretation Comments POC-GLUCOSE METER 210 mg/dL 70-110 H TESTED AT [place] [address] ([facility]) (test code = FRANCIS [place] 1538) 95381 POCT-GLUCOSE [id number] 00:43:00 Test Item Value Reference Range Interpretation Comments POC-GLUCOSE METER 163 mg/dL 70-110 H TESTED AT [place] [address] ([facility]) (test code = FR[place] 1538) 56593 POCT-GLUCOSE [id number] 16:33:00 Test Item Value Reference Range Interpretation Comments POC-GLUCOSE METER 177 mg/dL 70-110 H TESTED AT [place] [address] ([facility]) (test code = FRANC[place] 1538) 24545 POCT-GLUCOSE [id number] 10:58:00 Test Item Value Reference Range Interpretation Comments POC-GLUCOSE METER 151 mg/dL 70-110 H TESTED AT [place] [address] ([facility]) (test code = FRANC[place] 1538) 44585 POCT-GLUCOSE [id number] 06:30:00 Test Item Value Reference Range Interpretation Comments POC-GLUCOSE METER 176 mg/dL 70-110 H TESTED AT [place] [address] ([facility]) (test code = FRANCIS [place] 1538) 42374 POCT-GLUCOSE [id number] 02:01:00 Test Item Value Reference Range Interpretation Comments POC-GLUCOSE METER 188 mg/dL 70-110 H TESTED AT [place] [address] ([facility]) (test code = FRANC[place] 1538) 77816 POCT-GLUCOSE [id number] 16:33:00 Test Item Value Reference Range Interpretation Comments POC-GLUCOSE METER 162 mg/dL 70-110 H TESTED AT [place] [address] ([facility]) (test code = FRANCIS [place] 1538) 42319 POCT-GLUCOSE [id number] 11:05:00 Test Item Value Reference Range Interpretation Comments POC-GLUCOSE METER 173 mg/dL 70-110 H TESTED AT [place] [address] ([facility]) (test code = FRANCIS Pierce [facility] 1538) 82153 POCT-GLUCOSE [id number] 06:27:00 Test Item Value Reference Range Interpretation Comments POC-GLUCOSE METER 162 mg/dL 70-110 H TESTED AT [facility] 6720 (BEAKER) (test code = FRANCIS Pierce [facility] 1538) 26987 POCT-GLUCOSE [id number] 00:11:00 Test Item Value Reference Range Interpretation Comments POC-GLUCOSE METER 161 mg/dL 70-110 H TESTED AT [place] [address] (BEAKER) (test code = FRANCIS Pierce [facility] 1538) 14380 POCT-GLUCOSE [id number] 17:29:00 Test Item Value Reference Range Interpretation Comments POC-GLUCOSE METER 155 mg/dL 70-110 H TESTED AT [place] [address] ([facility] (test code = FRANCIS Pierce [facility] 1538) 12846 POCT-GLUCOSE [id number] 12:06:00 Test Item Value Reference Range Interpretation Comments POC-GLUCOSE METER 163 mg/dL 70-110 H TESTED AT [place] [address] ([facility] (test code = FRANCIS Pierce [facility] 1538) 95544 COMPREHENSIVE METABOLIC [id number] 07:08:00 Test Item Value Reference Range Interpretation Comments TOTAL PROTEIN 5.9 gm/dL 6.0-8.3 L (BEAKER) (test code = 770) ALBUMIN (BEAKER) 3.2 g/dL 3.5-5.0 L (test code = 1145) ALKALINE PHOSPHATASE 86 U/L 40-150 (BEAKER) (test code = 346) BILIRUBIN TOTAL 0.4 mg/dL 0.2-1.2 (BEAKER) (test code = 377) SODIUM (BEAKER) (test 142 meq/L 136-145 code = 381) POTASSIUM (BEAKER) 3.9 meq/L 3.5-5.1 (test code = 379) CHLORIDE (BEAKER) 112 meq/L 98-107 H (test code = 382) CO2 (BEAKER) (test 21 meq/L 22-29 L code = 355) BLOOD UREA NITROGEN 22 mg/dL 7-21 H (BEAKER) (test code = 354) CREATININE (BEAKER) 0.81 mg/dL 0.57-1.25 (test code = 358) GLUCOSE RANDOM 155 mg/dL 70-105 H (BEAKER) (test code = 652) CALCIUM (BEAKER) 8.9 mg/dL 8.4-10.2 (test code = 697) AST (SGOT) (BEAKER) 41 U/L 5-34 H (test code = 353) ALT (SGPT) (BEAKER) 75 U/L 6-55 H (test code = 347) EGFR (BEAKER) (test 70 mL/min/1.73 ESTIMA GONZALEZ GFR IS code = 1092) sq m NOT ACCURATE CREATININE CLEARANCE IN PREDICTING GLOMERULAR FILTRATION RATE . ESTIMATED GFR I S NOT APPLICABLE FOR DIALYSIS PATIEN TS. CBC W/PLT COUNT & AUTO [id number] 07:01:00 Test Item Value Reference Range Interpretation Comments WHITE BLOOD CELL COUNT (BEAKER) 12.5 K/ L 4.0-10.0 H (test code = 775) RED BLOOD CELL COUNT (BEAKER) 4.25 M/ L 4.00-5.00 (test code = 761) HEMOGLOBIN (BEAKER) (test code = 13.0 GM/DL 12.0-15.0 410) HEMATOCRIT (BEAKER) (test code = 39.8 % 36.0-45.0 411) MEAN CORPUSCULAR VOLUME (BEAKER) 93.6 fL 82.0-99.0 (test code = 753) MEAN CORPUSCULAR HEMOGLOBIN 30.5 pg 27.0-33.0 (BEAKER) (test code = 751) MEAN CORPUSCULAR HEMOGLOBIN CONC 32.5 GM/DL 32.0-36.0 (BEAKER) (test code = 752) RED CELL DISTRIBUTION WIDTH 13.4 % 10.3-14.2 (BEAKER) (test code = 412) PLATELET COUNT (BEAKER) (test 218 K/CU MM 150-430 code = 756) MEAN PLATELET VOLUME (BEAKER) 7.2 fL 6.5-10.5 (test code = 754) NUCLEATED RED BLOOD CELLS 0 /100 WBC 0-0 (BEAKER) (test code = 413) NEUTROPHILS RELATIVE PERCENT 67 % (BEAKER) (test code = 429) LYMPHOCYTES RELATIVE PERCENT 18 % (BEAKER) (test code = 430) MONOCYTES RELATIVE PERCENT 13 % (BEAKER) (test code = 431) EOSINOPHILS RELATIVE PERCENT 1 % (BEAKER) (test code = 432) BASOPHILS RELATIVE PERCENT 0 % (BEAKER) (test code = 437) NEUTROPHILS ABSOLUTE COUNT 8.37 K/ L 1.80-8.00 H (BEAKER) (test code = 670) LYMPHOCYTES ABSOLUTE COUNT 2.26 K/ L 1.48-4.50 (BEAKER) (test code = 414) MONOCYTES ABSOLUTE COUNT (BEAKER) 1.65 K/ L 0.00-1.30 H (test code = 415) EOSINOPHILS ABSOLUTE COUNT 0.19 K/ L 0.00-0.50 (BEAKER) (test code = 416) BASOPHILS ABSOLUTE COUNT (BEAKER) 0.06 K/ L 0.00-0.20 (test code = 417) 0.00PROTHROMBIN [id number] 06:37:00 Test Item Value Reference Range Interpretation Comments PROTIME ([facility] (test code = 13.4 seconds 11.7-14.7 759) INR ([facility]) (test code = 370) 1.0 <=5.9 RECOMMENDED COUMADIN/WARFARIN INR THERAPY RANGESSTANDARD DOSE: 2.0 - 3.0 Includes: PROPHYLAXIS forvenous thrombosis, systemic embolization; TREATMENT for venous thrombosis and/or pulmonary embolus.HIGH RISK: Target INR is 2.5-3.5 for patients with mechanical heart valves.POCT-GLUCOSE [id number] 06:02:00 Test Item Value Reference Range Interpretation Comments POC-GLUCOSE METER 147 mg/dL 70-110 H TESTED AT [place] [address] ([facility]) (test code = FRANCIS Pierce [facility] 1538) 21472 POCT-GLUCOSE [id number] 00:05:00 Test Item Value Reference Range Interpretation Comments POC-GLUCOSE METER 117 mg/dL 70-110 H TESTED AT [place] [address] ([facility]) (test code = FRANCIS Pierce [place] 1538) 26978 POCT-GLUCOSE [id number] 17:27:00 Test Item Value Reference Range Interpretation Comments POC-GLUCOSE METER 112 mg/dL 70-110 H TESTED AT [place] [address] ([facility]) (test code = FRANCIS Pierce [facility] 1538) 02847 POCT-GLUCOSE [id number] 12:08:00 Test Item Value Reference Range Interpretation Comments POC-GLUCOSE METER 154 mg/dL 70-110 H TESTED AT [place] [address] (BEAKER) (test code = [place] 1538) 25053 URINE [id number] 11:40:00 Test Item Value Reference Range Interpretation Comments CULTURE (BEAKER) (test code = 1095) No growth CBC W/PLT COUNT & AUTO [id number] 06:41:00 Test Item Value Reference Range Interpretation Comments WHITE BLOOD CELL COUNT (BEAKER) 12.9 K/ L 4.0-10.0 H (test code = 775) RED BLOOD CELL COUNT (BEAKER) 4.51 M/ L 4.00-5.00 (test code = 761) HEMOGLOBIN (BEAKER) (test code = 13.6 GM/DL 12.0-15.0 410) HEMATOCRIT (BEAKER) (test code = 43.0 % 36.0-45.0 411) MEAN CORPUSCULAR VOLUME (BEAKER) 95.5 fL 82.0-99.0 (test code = 753) MEAN CORPUSCULAR HEMOGLOBIN 30.1 pg 27.0-33.0 (BEAKER) (test code = 751) MEAN CORPUSCULAR HEMOGLOBIN CONC 31.5 GM/DL 32.0-36.0 L (BEAKER) (test code = 752) RED CELL DISTRIBUTION WIDTH 12.8 % 10.3-14.2 (BEAKER) (test code = 412) PLATELET COUNT (BEAKER) (test 257 K/CU MM 150-430 code = 756) MEAN PLATELET VOLUME (BEAKER) 7.3 fL 6.5-10.5 (test code = 754) NUCLEATED RED BLOOD CELLS 0 /100 WBC 0-0 (BEAKER) (test code = 413) NEUTROPHILS RELATIVE PERCENT 68 % (BEAKER) (test code = 429) LYMPHOCYTES RELATIVE PERCENT 17 % (BEAKER) (test code = 430) MONOCYTES RELATIVE PERCENT 14 % (BEAKER) (test code = 431) EOSINOPHILS RELATIVE PERCENT 1 % (BEAKER) (test code = 432) BASOPHILS RELATIVE PERCENT 0 % (BEAKER) (test code = 437) NEUTROPHILS ABSOLUTE COUNT 8.76 K/ L 1.80-8.00 H (BEAKER) (test code = 670) LYMPHOCYTES ABSOLUTE COUNT 2.21 K/ L 1.48-4.50 (BEAKER) (test code = 414) MONOCYTES ABSOLUTE COUNT (BEAKER) 1.74 K/ L 0.00-1.30 H (test code = 415) EOSINOPHILS ABSOLUTE COUNT 0.12 K/ L 0.00-0.50 (BEAKER) (test code = 416) BASOPHILS ABSOLUTE COUNT (BEAKER) 0.04 K/ L 0.00-0.20 (test code = 417) 0.00POCT-GLUCOSE [id number] 06:03:00 Test Item Value Reference Range Interpretation Comments POC-GLUCOSE METER 134 mg/dL 70-110 H TESTED AT [place] [address] ([facility] (test code = [facility] 1538) 276[address] BASIC METABOLIC [id number] 05:45:00 Test Item Value Reference Range Interpretation Comments SODIUM (BEAKER) 142 meq/L 136-145 (test code = 381) POTASSIUM (BEAKER) 4.3 meq/L 3.5-5.1 Specimen slightly (test code = 379) hemolyzed CHLORIDE (BEAKER) 113 meq/L 98-107 H (test code = 382) CO2 (BEAKER) (test 17 meq/L 22-29 L code = 355) BLOOD UREA NITROGEN 25 mg/dL 7-21 H (BEAKER) (test code = 354) CREATININE (BEAKER) 0.87 mg/dL 0.57-1.25 Specimen slightly (test code = 358) hemolyzed GLUCOSE RANDOM 136 mg/dL 70-105 H (BEAKER) (test code = 652) CALCIUM (BEAKER) 9.1 mg/dL 8.4-10.2 (test code = 697) EGFR (BEAKER) (test 65 mL/min/1.73 ESTIMA GONZALEZ GFR IS code = 1092) sq m NOT ACCURATE CREATININE CLEARANCE IN PREDICTING GLOMERULAR FILTRATION RATE . ESTIMATED GFR I S NOT APPLICABLE FOR DIALYSIS PATIEN TS. POCT-GLUCOSE [id number] 23:39:00 Test Item Value Reference Range Interpretation Comments POC-GLUCOSE METER 143 mg/dL 70-110 H TESTED AT [place] [address] [facility] (test code = [facility] 1538) [id number] POCT-GLUCOSE [id number] 18:14:00 Test Item Value Reference Range Interpretation Comments POC-GLUCOSE METER 149 mg/dL 70-110 H TESTED AT [place] [address] ([facility] (test code = [facility] 1538) [id number] POCT-GLUCOSE [id number] 11:39:00 Test Item Value Reference Range Interpretation Comments POC-GLUCOSE METER 162 mg/dL 70-110 H TESTED AT [facility] 6720 (BEAKER) (test code = [facility] 1538) [id number] CBC W/PLT COUNT & AUTO [id number] 11:08:00 Test Item Value Reference Range Interpretation Comments WHITE BLOOD CELL COUNT (BEAKER) 13.1 K/ L 4.0-10.0 H (test code = 775) RED BLOOD CELL COUNT (BEAKER) 4.65 M/ L 4.00-5.00 (test code = 761) HEMOGLOBIN (BEAKER) (test code = 14.5 GM/DL 12.0-15.0 410) HEMATOCRIT (BEAKER) (test code = 43.6 % 36.0-45.0 411) MEAN CORPUSCULAR VOLUME (BEAKER) 93.7 fL 82.0-99.0 (test code = 753) MEAN CORPUSCULAR HEMOGLOBIN 31.2 pg 27.0-33.0 (BEAKER) (test code = 751) MEAN CORPUSCULAR HEMOGLOBIN CONC 33.3 GM/DL 32.0-36.0 (BEAKER) (test code = 752) RED CELL DISTRIBUTION WIDTH 12.6 % 10.3-14.2 (BEAKER) (test code = 412) PLATELET COUNT (BEAKER) (test 243 K/CU MM 150-430 code = 756) MEAN PLATELET VOLUME (BEAKER) 6.9 fL 6.5-10.5 (test code = 754) NUCLEATED RED BLOOD CELLS 0 /100 WBC 0-0 (BEAKER) (test code = 413) NEUTROPHILS RELATIVE PERCENT 72 % (BEAKER) (test code = 429) LYMPHOCYTES RELATIVE PERCENT 14 % (BEAKER) (test code = 430) MONOCYTES RELATIVE PERCENT 13 % (BEAKER) (test code = 431) EOSINOPHILS RELATIVE PERCENT 0 % (BEAKER) (test code = 432) BASOPHILS RELATIVE PERCENT 1 % (BEAKER) (test code = 437) NEUTROPHILS ABSOLUTE COUNT 9.47 K/ L 1.80-8.00 H (BEAKER) (test code = 670) LYMPHOCYTES ABSOLUTE COUNT 1.81 K/ L 1.48-4.50 (BEAKER) (test code = 414) MONOCYTES ABSOLUTE COUNT (BEAKER) 1.70 K/ L 0.00-1.30 H (test code = 415) EOSINOPHILS ABSOLUTE COUNT 0.04 K/ L 0.00-0.50 (BEAKER) (test code = 416) BASOPHILS ABSOLUTE COUNT (BEAKER) 0.08 K/ L 0.00-0.20 (test code = 417) 0.00POCT-GLUCOSE [id number] 05:42:00 Test Item Value Reference Range Interpretation Comments POC-GLUCOSE METER 134 mg/dL 70-110 H TEST[facility] AT [place] [address] [facility] (test code = [facility] 1538) [id number] POCT-GLUCOSE [id number] 00:45:00 Test Item Value Reference Range Interpretation Comments POC-GLUCOSE METER 95 mg/dL 70-110 TESTED AT [place] [address] ([facility]) (test code = [facility] [address] 1538) POCT-GLUCOSE [id number] 17:43:00 Test Item Value Reference Range Interpretation Comments POC-GLUCOSE METER 109 mg/dL 70-110 TESTED AT [place] [address] ([facility]) (test code = [facility] 1538) [id number] POCT-GLUCOSE [id number] 13:03:00 Test Item Value Reference Range Interpretation Comments POC-GLUCOSE METER 77 mg/dL 70-110 TESTED AT [place] [address] ([facility]) (test code = [facility] [address] 1538) URINALYSIS W/ REFLEX URINE [id number] 12:57:00 Test Item Value Reference Range Interpretation Comments COLOR (BEAKER) (test code = 470) Yellow CLARITY (BEAKER) (test code = 469) Clear SPECIFIC GRAVITY UA (BEAKER) (test 1.023 1.001-1.035 code = 468) PH UA (BEAKER) (test code = 467) 5.0 5.0-8.0 PROTEIN UA (BEAKER) (test code = 20 mg/dL Negative A 464) GLUCOSE UA (BEAKER) (test code = Negative Negative 365) KETONES UA (BEAKER) (test code = >150 mg/dL Negative A 371) BILIRUBIN UA (BEAKER) (test code = Negative Negative 462) BLOOD UA (BEAKER) (test code = Trace Negative A 461) NITRITE UA (BEAKER) (test code = Negative Negative 465) LEUKOCYTE ESTERASE UA (BEAKER) Small Negative A (test code = 466) UROBILINOGEN UA (BEAKER) (test 0.2 mg/dL 0.2-1.0 code = 463) RBC UA (BEAKER) (test code = 519) 3 /HPF WBC UA (BEAKER) (test code = 520) 11 /HPF MUCUS (BEAKER) (test code = 1574) Few SOURCE(BEAKER) (test code = 2795) [id number] 12:51:00 Test Item Value Reference Range Interpretation Comments RPR SCREEN (BEAKER) (test code = Nonreactive Nonreactive 420) POCT-GLUCOSE [id number] 08:00:00 Test Item Value Reference Range Interpretation Comments POC-GLUCOSE METER 79 mg/dL 70-110 TESTED AT [place] [address] (BEAKER) (test [facility] = [facility] [address] 1538) POCT-GLUCOSE [id number] 05:35:00 Test Item Value Reference Range Interpretation Comments POC-GLUCOSE METER 92 mg/dL 70-110 TESTED AT [place] [address] ([facility] (test code = [facility] K[facility] [address] 1538) CBC W/PLT COUNT & AUTO [id number] 04:47:00 Test Item Value Reference Range Interpretation Comments WHITE BLOOD CELL COUNT (BEAKER) 12.5 K/ L 4.0-10.0 H (test code = 775) RED BLOOD CELL COUNT (BEAKER) 4.28 M/ L 4.00-5.00 (test code = 761) HEMOGLOBIN (BEAKER) (test code = 13.0 GM/DL 12.0-15.0 410) HEMATOCRIT (BEAKER) (test code = 39.6 % 36.0-45.0 411) MEAN CORPUSCULAR VOLUME (BEAKER) 92.6 fL 82.0-99.0 (test code = 753) MEAN CORPUSCULAR HEMOGLOBIN 30.5 pg 27.0-33.0 (BEAKER) (test code = 751) MEAN CORPUSCULAR HEMOGLOBIN CONC 32.9 GM/DL 32.0-36.0 (BEAKER) (test code = 752) RED CELL DISTRIBUTION WIDTH 13.5 % 10.3-14.2 (BEAKER) (test code = 412) PLATELET COUNT (BEAKER) (test 242 K/CU MM 150-430 code = 756) MEAN PLATELET VOLUME (BEAKER) 6.8 fL 6.5-10.5 (test code = 754) NUCLEATED RED BLOOD CELLS 0 /100 WBC 0-0 (BEAKER) (test code = 413) NEUTROPHILS RELATIVE PERCENT 68 % (BEAKER) (test code = 429) LYMPHOCYTES RELATIVE PERCENT 18 % (BEAKER) (test code = 430) MONOCYTES RELATIVE PERCENT 12 % (BEAKER) (test code = 431) EOSINOPHILS RELATIVE PERCENT 0 % (BEAKER) (test code = 432) BASOPHILS RELATIVE PERCENT 1 % (BEAKER) (test code = 437) NEUTROPHILS ABSOLUTE COUNT 8.53 K/ L 1.80-8.00 H (BEAKER) (test code = 670) LYMPHOCYTES ABSOLUTE COUNT 2.26 K/ L 1.48-4.50 (BEAKER) (test code = 414) MONOCYTES ABSOLUTE COUNT (BEAKER) 1.53 K/ L 0.00-1.30 H (test code = 415) EOSINOPHILS ABSOLUTE COUNT 0.05 K/ L 0.00-0.50 (BEAKER) (test code = 416) BASOPHILS ABSOLUTE COUNT (BEAKER) 0.12 K/ L 0.00-0.20 (test code = 417) 0.00POCT-GLUCOSE [id number] 23:27:00 Test Item Value Reference Range Interpretation Comments POC-GLUCOSE METER 86 mg/dL 70-110 TESTED AT [place] [address] ([facility]) (test code = [facility] [address] 1538) POCT-GLUCOSE [id number] 18:04:00 Test Item Value Reference Range Interpretation Comments POC-GLUCOSE METER 89 mg/dL 70-110 TESTED AT [place] [address] ([facility]) (test code = [facility] [address] 1538) POCT-GLUCOSE [id number] 12:14:00 Test Item Value Reference Range Interpretation Comments POC-GLUCOSE METER 112 mg/dL 70-110 H TEST[facility] AT [place] [address] [facility] (test code = [facility] 1538) [id number] HEMOGLOBIN [id number] 11:55:00 Test Item Value Reference Range Interpretation Comments HEMOGLOBIN A1C (BEAKER) (test code = 5.7 % 4.3-6.1 368) FastingPOCT-GLUCOSE [id number] 08:33:00 Test Item Value Reference Range Interpretation Comments POC-GLUCOSE METER 116 mg/dL 70-110 H TESTED AT [facility] 6720 (BEAKER) (test code = [place] 1538) [address] [id number] 06:15:00 Test Item Value Reference Range Interpretation Comments HOMOCYSTEINE (BEAKER) (test code = 8.7 umol/L 5.1-15.4 642) FastingBASIC METABOLIC [id number] 05:46:00 Test Item Value Reference Range Interpretation Comments SODIUM (BEAKER) 141 meq/L 136-145 (test code = 381) POTASSIUM (BEAKER) 4.5 meq/L 3.5-5.1 Specimen slightly (test code = 379) hemolyzed CHLORIDE (BEAKER) 111 meq/L 98-107 H (test code = 382) CO2 (BEAKER) (test 19 meq/L 22-29 L code = 355) BLOOD UREA NITROGEN 15 mg/dL 7-21 (BEAKER) (test code = 354) CREATININE (BEAKER) 0.89 mg/dL 0.57-1.25 Specimen slightly (test code = 358) hemolyzed GLUCOSE RANDOM 102 mg/dL 70-105 (BEAKER) (test code = 652) CALCIUM (BEAKER) 8.7 mg/dL 8.4-10.2 (test code = 697) EGFR (BEAKER) (test 63 mL/min/1.73 ESTIMA GONZALEZ GFR IS code = 1092) sq m NOT ACCURATE CREATININE CLEARANCE IN PREDICTING GLOMERULAR FILTRATION RATE . ESTIMATED GFR I S NOT APPLICABLE FOR DIALYSIS PATIEN TS. LIPID [id number] 05:46:00 Test Item Value Reference Range Interpretation Comments TRIGLYCERIDES (BEAKER) 183 mg/dL Speci men slightly (test code = 540) hemolyzed CHOLESTEROL (BEAKER) 248 mg/dL Specime n slightly (test code = 631) hemolyzed HDL CHOLESTEROL (BEAKER) 40 mg/dL (test code = 976) LDL CHOLESTEROL 171 mg/dL CALCULATED (BEAKER) (test code = 633) Triglyceride Reference Range: Low Risk <150 Borderline 150-199 High Risk 200-499 Very High Risk >=500Cholesterol Reference Range: Low Risk <200 Borderline 200-239 High Risk >240HDL Cholesterol Reference Range: Low Risk >=60 High Risk <40LDL Cholesterol Reference Range: Optimal <100 Near Optimal 100-129 Borderline 130-159 High 160-189 Very High >=190CBC W/PLT COUNT & AUTO [id number] 05:27:00 Test Item Value Reference Range Interpretation Comments WHITE BLOOD CELL COUNT (BEAKER) 12.8 K/ L 4.0-10.0 H (test code = 775) RED BLOOD CELL COUNT (BEAKER) 4.50 M/ L 4.00-5.00 (test code = 761) HEMOGLOBIN (BEAKER) (test code = 13.8 GM/DL 12.0-15.0 410) HEMATOCRIT (BEAKER) (test code = 42.4 % 36.0-45.0 411) MEAN CORPUSCULAR VOLUME (BEAKER) 94.2 fL 82.0-99.0 (test code = 753) MEAN CORPUSCULAR HEMOGLOBIN 30.6 pg 27.0-33.0 (BEAKER) (test code = 751) MEAN CORPUSCULAR HEMOGLOBIN CONC 32.5 GM/DL 32.0-36.0 (BEAKER) (test code = 752) RED CELL DISTRIBUTION WIDTH 13.4 % 10.3-14.2 (BEAKER) (test code = 412) PLATELET COUNT (BEAKER) (test 226 K/CU MM 150-430 code = 756) MEAN PLATELET VOLUME (BEAKER) 7.0 fL 6.5-10.5 (test code = 754) NUCLEATED RED BLOOD CELLS 0 /100 WBC 0-0 (BEAKER) (test code = 413) NEUTROPHILS RELATIVE PERCENT 74 % (BEAKER) (test code = 429) LYMPHOCYTES RELATIVE PERCENT 15 % (BEAKER) (test code = 430) MONOCYTES RELATIVE PERCENT 10 % (BEAKER) (test code = 431) EOSINOPHILS RELATIVE PERCENT 0 % (BEAKER) (test code = 432) BASOPHILS RELATIVE PERCENT 1 % (BEAKER) (test code = 437) NEUTROPHILS ABSOLUTE COUNT 9.42 K/ L 1.80-8.00 H (BEAKER) (test code = 670) LYMPHOCYTES ABSOLUTE COUNT 1.95 K/ L 1.48-4.50 (BEAKER) (test code = 414) MONOCYTES ABSOLUTE COUNT (BEAKER) 1.33 K/ L 0.00-1.30 H (test code = 415) EOSINOPHILS ABSOLUTE COUNT 0.02 K/ L 0.00-0.50 (BEAKER) (test code = 416) BASOPHILS ABSOLUTE COUNT (BEAKER) 0.08 K/ L 0.00-0.20 (test code = 417) 0.00SEDIMENTATION [id number] 18:59:00 Test Item Value Reference Range Interpretation Comments SEDIMENTATION RATE, ERYTHROCYTE 23 mm/HR 0-40 (BEAKER) (test code = 766) POCT-GLUCOSE [id number] 17:41:00 Test Item Value Reference Range Interpretation Comments POC-GLUCOSE METER 94 mg/dL 70-110 TESTED AT [facility] 6720 ([facility]) (test code = [place] [address] 1538) TSH/FREE T4 IF [id number] 17:16:00 Test Item Value Reference Range Interpretation Comments THYROID STIMULATING HORMONE 1.34 uIU/mL 0.35-4.94 (BEAKER) (test code = 772) VITAMIN B12 AND [id number] 17:16:00 Test Item Value Reference Range Interpretation Comments VITAMIN B12 (BEAKER) (test code = 466 pg/mL [id number] 874) FOLATE (BEAKER) (test code = 362) 16.5 ng/mL >=7.0 Effective 01/12/2014: Folate Reference Range ChangeNew: >=7.0 Previous: >=5.4C-REACTIVE [id number] 16:40:00 Test Item Value Reference Range Interpretation Comments C-REACTIVE PROTEIN (BEAKER) (test 0.38 mg/dL 0.00-0.50 code = 676) CBC W/PLT COUNT & AUTO [id number] 12:25:00 Test Item Value Reference Range Interpretation Comments WHITE BLOOD CELL COUNT (BEAKER) 11.1 K/ L 4.0-10.0 H (test code = 775) RED BLOOD CELL COUNT (BEAKER) 4.27 M/ L 4.00-5.00 (test code = 761) HEMOGLOBIN (BEAKER) (test code = 13.0 GM/DL 12.0-15.0 410) HEMATOCRIT (BEAKER) (test code = 40.6 % 36.0-45.0 411) MEAN CORPUSCULAR VOLUME (BEAKER) 95.0 fL 82.0-99.0 (test code = 753) MEAN CORPUSCULAR HEMOGLOBIN 30.4 pg 27.0-33.0 (BEAKER) (test code = 751) MEAN CORPUSCULAR HEMOGLOBIN CONC 32.0 GM/DL 32.0-36.0 (BEAKER) (test code = 752) RED CELL DISTRIBUTION WIDTH 12.6 % 10.3-14.2 (BEAKER) (test code = 412) PLATELET COUNT (BEAKER) (test 248 K/CU MM 150-430 code = 756) MEAN PLATELET VOLUME (BEAKER) 7.5 fL 6.5-10.5 (test code = 754) NUCLEATED RED BLOOD CELLS 0 /100 WBC 0-0 (BEAKER) (test code = 413) NEUTROPHILS RELATIVE PERCENT 73 % (BEAKER) (test code = 429) LYMPHOCYTES RELATIVE PERCENT 17 % (BEAKER) (test code = 430) MONOCYTES RELATIVE PERCENT 10 % (BEAKER) (test code = 431) EOSINOPHILS RELATIVE PERCENT 0 % (BEAKER) (test code = 432) BASOPHILS RELATIVE PERCENT 1 % (BEAKER) (test code = 437) NEUTROPHILS ABSOLUTE COUNT 8.03 K/ L 1.80-8.00 H (BEAKER) (test code = 670) LYMPHOCYTES ABSOLUTE COUNT 1.84 K/ L 1.48-4.50 (BEAKER) (test code = 414) MONOCYTES ABSOLUTE COUNT (BEAKER) 1.13 K/ L 0.00-1.30 (test code = 415) EOSINOPHILS ABSOLUTE COUNT 0.02 K/ L 0.00-0.50 (BEAKER) (test code = 416) BASOPHILS ABSOLUTE COUNT (BEAKER) 0.06 K/ L 0.00-0.20 (test code = 417) 0.00(MANUAL DIFFERENTIAL)[id number] 12:25:00 Test Item Value Reference Range Interpretation Comments TOTAL COUNTED (BEAKER) (test code = 1351) PROTHROMBIN [id number] 11:57:00 Test Item Value Reference Range Interpretation Comments PROTIME (BEAKER) (test code = 14.0 seconds 11.7-14.7 759) INR (BEAKER) (test code = 370) 1.1 <=5.9 RECOMMENDED COUMADIN/WARFARIN INR THERAPY RANGESSTANDARD DOSE: 2.0 - 3.0 Includes: PROPHYLAXIS forvenous thrombosis, systemic embolization; TREATMENT for venous thrombosis and/or pulmonary embolus.HIGH RISK: Target INR is 2.5-3.5 for patients with mechanical heart valves.BASIC METABOLIC [id number] 11:56:00 Test Item Value Reference Range Interpretation Comments SODIUM (BEAKER) 142 meq/L 136-145 (test code = 381) POTASSIUM (BEAKER) 4.5 meq/L 3.5-5.1 Specimen moderately (test code = 379) hemolyzed CHLORIDE (BEAKER) 111 meq/L 98-107 H (test code = 382) CO2 (BEAKER) (test 25 meq/L 22-29 code = 355) BLOOD UREA NITROGEN 21 mg/dL 7-21 (BEAKER) (test code = 354) CREATININE (BEAKER) 0.91 mg/dL 0.57-1.25 Specimen moderately (test code = 358) hemolyzed GLUCOSE RANDOM 111 mg/dL 70-105 H (BEAKER) (test code = 652) CALCIUM (BEAKER) 8.6 mg/dL 8.4-10.2 (test code = 697) EGFR (BEAKER) (test 61 mL/min/1.73 ESTIMA GONZALEZ GFR IS code = 1092) sq m NOT ACCURATE CREATININE CLEARANCE IN PREDICTING GLOMERULAR FILTRATION RATE . ESTIMATED GFR I S NOT APPLICABLE FOR DIALYSIS PATIEN TS. HEPATIC FUNCTION [id number] 11:56:00 Test Item Value Reference Range Interpretation Comments TOTAL PROTEIN (BEAKER) 6.3 gm/dL 6.0-8.3 Speci men moderately (test code = 770) hemolyzed ALBUMIN (BEAKER) (test 3.3 g/dL 3.5-5.0 L Speci men moderately code = 1145) hemolyzed BILIRUBIN TOTAL 0.4 mg/dL 0.2-1.2 Specimen mod erately (BEAKER) (test code = hemoly zed 377) BILIRUBIN DIRECT 0.1 mg/dL 0.1-0.5 Specimen mo derately (BEAKER) (test code = hemoly zed 706) ALKALINE PHOSPHATASE 70 U/L 40-150 (BEAKER) (test code = 346) AST (SGOT) (BEAKER) 37 U/L 5-34 H Specimen moderately (test code = 353) hemolyzed ALT (SGPT) (BEAKER) 37 U/L 6-55 Specimen moderately (test code = 347) hemolyzed
[2019-09-30 17:36] LABS: ALT/SGPT 17 U/L (12-78); AST/SGOT 11 U/L (15-37); Albumin 2.6 g/dL (3.4-5.0); Alkaline Phosphatase 67 U/L (45-117); BUN Blood Urea Nitrogen 23 mg/dL (7-18); Bicarbonate 25 mmol/L (21-32); Bilirubin Direct < 0.1 mg/dL (0-0.2); Bilirubin Total 0.2 mg/dL (0.2-1.0); Glucose Level 102 mg/dL (74-106); Lipase 99 U/L (73-393); Potassium 4.1 mmol/L (3.5-5.1); Protein, Total 6.9 g/dL (6.4-8.2); Sodium Level 141 mmol/L (136-145)
[2019-09-30 18:08] LABS: MPV 8.7 fL (7.6-11.3); RBC Red Blood Cell Count 3.85 M/uL (3.86-4.86)
--- NOTE | 2019-09-30 18:28 | EDPHYS ---
Physician Documentation [facility] Name: Rocio Dawson Age: 74 yrs Sex: Female : 1945 Arrival Date: 09/30/2019 Time: 14:16 Bed 13 Private MD: ED Physician Jeovanny Gallego HPI: 09/30 08:00 This 74 yrs old Female presents to ER via Wheelchair with complaints of Sernt kdr by Dr Milton/Low Hemoglobin. 08:00 The patient was called after routine blood work revealed that she was anemic. Onset: kdr The symptoms/episode began/occurred at an unknown time. Severity of symptoms: At their worst the symptoms were mild in the emergency department the symptoms are unchanged. The patient has not experienced similar symptoms in the past. The patient has not recently seen a physician. Historical: - Allergies: 09/29 15:08 Lipitor; ca1 15:08 Prednisone; ca1 - PMHx: 15:08 Hyperlipidemia; Hypertension; varicose veins; CVA; ca1 - PSHx: 15:08 Polyps removed; Appendectomy; L elbow; left eye; ca1 - Immunization history:: Adult Immunizations up to date. - Social history:: Smoking status: Patient denies any tobacco usage or history of. ROS: 09/30 08:00 Constitutional: Negative for fever, chills, and weight loss, Eyes: Negative for injury, kdr pain, redness, and discharge, ENT: Negative for injury, pain, and discharge, Neck: Negative for injury, pain, and swelling, Cardiovascular: Negative for chest pain, palpitations, and edema, Respiratory: Negative for shortness of breath, cough, wheezing, and pleuritic chest pain, Back: Negative for injury and pain, : Negative for injury, bleeding, discharge, and swelling, MS/Extremity: Negative for injury and deformity, Skin: Negative for injury, rash, and discoloration, Neuro: Negative for headache, weakness, numbness, tingling, and seizure activity. Psych: Negative for depression, anxiety, suicide ideation, homicidal ideation, and hallucinations, Allergy/Immunology: Negative for hives, rash, and allergies, Endocrine: Negative for neck swelling, polydipsia, polyuria, polyphagia, and marked weight changes, Hematologic/Lymphatic: Negative for swollen nodes, abnormal bleeding, and unusual bruising. Abdomen/GI: Positive for Dark stools, Negative for abdominal pain, diarrhea, constipation, abdominal cramps, abdominal distension, anorexia, dysphagia, hematemesis, black/tarry stool, rectal pain. Exam: 08:00 Constitutional: This is a well developed, well nourished patient who is awake, alert, kdr and in no acute distress. Head/Face: Normocephalic, atraumatic. Eyes: Pupils equal round and reactive to light, extra-ocular motions intact. Lids and lashes normal. Conjunctiva and sclera are non-icteric and not injected. Cornea within normal limits. Periorbital areas with no swelling, redness, or edema. Neck: Trachea midline, no thyromegaly or masses palpated, and no cervical lymphadenopathy. Supple, full range of motion without nuchal rigidity, or vertebral point tenderness. No Meningismus. Chest/axilla: Normal chest wall appearance and motion. Nontender with no deformity. No lesions are appreciated. Cardiovascular: Regular rate and rhythm with a normal S1 and S2. No gallops, murmurs, or rubs. Normal PMI, no JVD. No pulse deficits. Respiratory: Lungs have equal breath sounds bilaterally, clear to auscultation and percussion. No rales, rhonchi or wheezes noted. No increased work of breathing, no retractions or nasal flaring. Back: No spinal tenderness. No costovertebral tenderness. Full range of motion. Skin: Warm, dry with normal turgor. Normal color with no rashes, no lesions, and no evidence of cellulitis. MS/ Extremity: Pulses equal, no cyanosis. Neurovascular intact. Full, normal range of motion. Neuro: Awake and alert, GCS 15, oriented to person, place, time, and situation. Cranial nerves II-XII grossly intact. Motor strength 5/5 in all extremities. Sensory grossly intact. Cerebellar exam normal. Normal gait. Psych: Awake, alert, with orientation to person, place and time. Behavior, mood, and affect are within normal limits. 08:00 Abdomen/GI: Inspection: abdomen appears normal, Bowel sounds: normal, Palpation: abdomen is soft and non-tender, soft, Rectal exam: Stool: brown, guaiac positive. Vital Signs: 09/29 15:04 BP 100 / 60; Pulse 95; Resp 18 S; Temp 98.9(TE); Pulse Ox 96% on R/A; Weight 56.7 kg ca1 (R); Height 5 ft. 3 in. (160.02 cm) (R); 17:45 BP 105 / 60; Pulse 76; Resp 20; Pulse Ox 100% on R/A; jr10 19:00 BP 117 / 64; Pulse 72; Resp 16; Pulse Ox 100% on R/A; jb4 20:00 BP 106 / 62; Pulse 72; Resp 16; Temp 98.2(O); Pulse Ox 100% on R/A; Pain 0/10; jb4 21:15 BP 118 / 66; Pulse 78; Resp 16; Temp 97.8(O); Pulse Ox 99% on R/A; Pain 0/10; jb4 15:04 Body Mass Index 22.14 (56.70 kg, 160.02 cm) ca1 20:00 see transfusion flow sheet for further documentation. jb4 MDM: 18:27 Patient medically screened. kdr 09/30 08:00 Data reviewed: vital signs, nurses notes, lab test result(s), radiologic studies. kdr Counseling: I had a detailed discussion with the patient and/or guardian regarding: the historical points, exam findings, and any diagnostic results supporting the discharge/admit diagnosis, lab results, radiology results, the need for further work-up and treatment in the hospital. 09/29 16:49 Order name: Type And Screen kdr 09/29 16:51 Order name: Basic Metabolic Panel; Complete Time: 17:45 kdr 09/29 16:51 Order name: CBC with Diff; Complete Time: 18:57 kdr 09/29 16:51 Order name: Hepatic Function; Complete Time: 17:45 kdr 09/29 16:51 Order name: Lipase; Complete Time: 17:45 kdr 09/29 17:20 Order name: Bb Add On bd 09/29 17:43 Order name: Packed RBC Leukored EDMS 09/29 17:46 Order name: CT Abd/Pelvis - IV Contrast Only kdr 09/29 18:14 Order name: Manual Differential; Complete Time: 18:57 EDMS 09/29 19:13 Order name: ABO/RH no charge EDMS 09/29 16:51 Order name: IV Saline Lock; Complete Time: 17:06 kdr 09/29 16:51 Order name: Labs collected and sent; Complete Time: 17:06 kdr Administered Medications: 09/29 19:15 Drug: ProTONIX 40 mg Route: IVP; Site: right antecubital; jb4 Disposition: 09/30/19 18:27 Hospitalization ordered by Prince Cresencio for Inpatient Admission. Preliminary diagnosis are Anemia, unspecified, GI Bleed. - Bed requested for Telemetry/MedSurg (Inpatient). - Status is Inpatient Admission. bb - Condition is Fair. - Problem is an ongoing problem. - Symptoms are unchanged. Signatures: Dispatcher [employer] EDMS Jeovanny Gallego MD MD kdr Cailin Anaya, RN RN bb Dianne, Osmani, UNEMPLOYMENT INSURANCE DIRECTOR-C UNEMPLOYMENT INSURANCE DIRECTOR-Cla1 Alysia Coburn, RN RN tl1 Abilio Melendez, LISA RN jb4 Maliha Talavera RN RN ca1 Corrections: (The following items were deleted from the chart) 17:39 16:49 PACKED RBC LEUKORED -1+BB.LAB.BRZ ordered. EDMT EDMS 17:39 16:50 ABO/RH typing ordered. EDMT EDMS 17:39 16:50 Antibody Screen ordered. EDMT EDMS 19:49 18:27 Hospitalization Ordered by Prince Cresencio [facility] for Inpatient Admission. Preliminary tl1 diagnosis is Anemia, unspecified; GI Bleed. Bed requested for Telemetry/MedSurg (Inpatient). Status is Inpatient Admission. Condition is Fair. Problem is an ongoing problem. Symptoms are unchanged. kdr 21:43 19:49 09/30/2019 18:27 Hospitalization Ordered by Prince Cresencio [facility] for Inpatient bb Admission. Preliminary diagnosis is Anemia, unspecified; GI Bleed. Bed requested for Telemetry/MedSurg (Inpatient). Status is Inpatient Admission. Condition is Fair. Problem is an ongoing problem. Symptoms are unchanged. tl1
--- NOTE | 2019-09-30 18:28 | ER ---
Nurse's Notes [facility] Name: Rocio Dawson Age: 74 yrs Sex: Female : 1945 Arrival Date: 09/30/2019 Time: 14:16 Bed 13 Private MD: Diagnosis: Anemia, unspecified;GI Bleed Presentation: 09/29 15:04 Chief complaint: Spouse and/or significant other states: Was here this morning for a ca1 blood works. Was called this afternoon for the results and instructed to come to the ER for low hemoglobin and pt needs blood transfusion. Denies black tarry stools. No previous history of bleeding. No previous BT. Denies any pain. Coronavirus screen: Client denies travel out of the [place] in the last 14 days. At this time, the client does not indicate any symptoms associated with coronavirus-19. Ebola Screen: Patient negative for fever greater than or equal to 101.5 degrees Fahrenheit, and additional compatible Ebola Virus Disease symptoms Patient denies exposure to infectious person. Patient denies travel to an Ebola-affected area in the 21 days before illness onset. No symptoms or risks identified at this time. Initial Sepsis Screen: Does the patient meet any 2 criteria? No. Patient's initial sepsis screen is negative. Does the patient have a suspected source of infection? No. Patient's initial sepsis screen is negative. Risk Assessment: Do you want to hurt yourself or someone else? Patient reports no desire to harm self or others. Onset of symptoms was September 30, 2019. 15:04 Method Of Arrival: Wheelchair ca1 15:04 Acuity: NIKA 3 ca1 Historical: - Allergies: 15:08 Lipitor; ca1 15:08 Prednisone; ca1 - PMHx: 15:08 Hyperlipidemia; Hypertension; varicose veins; CVA; ca1 - PSHx: 15:08 Polyps removed; Appendectomy; L elbow; left eye; ca1 - Immunization history:: Adult Immunizations up to date. - Social history:: Smoking status: Patient denies any tobacco usage or history of. Screenin:11 Abuse screen: Denies threats or abuse. Denies injuries from another. Nutritional jr10 screening: No deficits noted. Tuberculosis screening: No symptoms or risk factors identified. Fall Risk Fall in past 12 months (25 points). Secondary diagnosis (15 points) impaired mobility, CVA, IV access (20 points). Ambulatory Aid- None/Bed Rest/Nurse Assist (0 pts). Gait- Impaired (20 pts.). Mental Status- Oriented to own ability (0 pts). Assessment: 17:11 General: Appears in no apparent distress. Behavior is calm, cooperative, appropriate jr10 for age. Pain: Denies pain. 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 Cardiovascular: Denies chest pain, shortness of breath. Respiratory: Airway is patent Respiratory effort is even, unlabored, Respiratory pattern is regular, symmetrical, Breath sounds are clear bilaterally. Denies shortness of breath. 17:11 : No signs and/or symptoms were reported regarding the genitourinary system. EENT: No jr10 deficits noted. Derm: No deficits noted. Musculoskeletal: Reports generalized weakness and fatigue. 17:30 GI: No signs and/or symptoms were reported involving the gastrointestinal system. Pt jr10 noted to have bowel incontinence, loose brown stool noted. Pt cleaned, perineal care provided, fresh brief placed. No blood noted in stool. Pt is guaiac positive. notified and aware. 18:30 Reassessment: PT FAMILY CONTACT INFORMATION: SEAN (): [phone]. jr10 19:05 Reassessment: PT is awake, alert and oriented x4. Denies pain. Is resting in bed jb4 comfortably. IV draws and flushes with ease. Site is clean dry and intact. 20:15 Reassessment: Blood transfusion started. Denies pain, is A\T\Ox4. Lungs are CTA DANIEL. PT jb4 is afebrile. Respirations are even and unlabored. 20:30 Reassessment: PT is resting in bed with no s/s of distress noted. Remains A\T\O x4. jb4 Respirations remain even and unlabored. Blood is infusing at 125ml/hr. Lungs remain CTA DANIEL. Questions addressed, updated on POC. Patient denies pain at this time. 20:40 Reassessment: Attempted to call report instructed to wait for call back. jb4 21:30 Reassessment: Patient and/or family updated on plan of care and expected duration. Pain jb4 level reassessed. Patient is alert, oriented x 3, equal unlabored respirations, skin warm/dry/pink. PT transferred upstairs via stretcher. Remains A\T\O x4. Blood is transfusing without issue. IV site is clean dry and intact. Vital Signs: 15:04 BP 100 / 60; Pulse 95; Resp 18 S; Temp 98.9(TE); Pulse Ox 96% on R/A; Weight 56.7 kg ca1 (R); Height 5 ft. 3 in. (160.02 cm) (R); 17:45 BP 105 / 60; Pulse 76; Resp 20; Pulse Ox 100% on R/A; jr10 19:00 BP 117 / 64; Pulse 72; Resp 16; Pulse Ox 100% on R/A; jb4 20:00 BP 106 / 62; Pulse 72; Resp 16; Temp 98.2(O); Pulse Ox 100% on R/A; Pain 0/10; jb4 21:15 BP 118 / 66; Pulse 78; Resp 16; Temp 97.8(O); Pulse Ox 99% on R/A; Pain 0/10; jb4 15:04 Body Mass Index 22.14 (56.70 kg, 160.02 cm) ca1 20:00 see transfusion flow sheet for further documentation. jb4 ED Course: 14:16 Patient arrived in ED. ds1 15:07 Triage completed. ca1 15:08 Arm band placed on right wrist. ca1 16:29 Isi Neely RN is Primary Nurse. jr10 16:32 Jeovanny Gallego MD is Attending Physician. kdr 17:06 Inserted saline lock: 20 gauge in right antecubital area, using aseptic technique. IV jr10 is patent, is intact, with good blood return, Flushed. 17:11 Patient has correct armband on for positive identification. Bed in low position. Call jr10 light in reach. Side rails up X2. playground monitor on. Pulse ox on. NIBP on. 18:26 Prince Dupont MD is Hospitalizing Provider. kdr 18:28 CT Abd/Pelvis - IV Contrast Only In Process Unspecified. EDMS 19:09 Report given to LISA Tristan. jr10 21:30 No provider procedures requiring assistance completed. Patient admitted, IV remains in jb4 place. Administered Medications: 19:15 Drug: ProTONIX 40 mg Route: IVP; Site: right antecubital; jb4 Outcome: 18:27 Decision to Hospitalize by Provider. kdr 21:30 Admitted to Med/surg accompanied by nurse, via stretcher, room 219, with chart, Report jb4 called to [facility] 21:30 Condition: stable 21:30 Discharge instructions given to patient, Instructed on the need for admit, Demonstrated understanding of instructions. 21:43 Patient left the ED. bb Signatures: Dispatcher [employer] EDMS Jeovanny Gallego MD MD kdr Sanford, Demi ds1 Cailin Anaya RN RN bb Abilio Melendez RN RN jb4 Maliha Talavera RN RN Isi Chauhan RN RN jr10
[2019-09-30 18:44] LABS: Anisocytosis 2+; Blood Morphology Comment NOTED (NOT SEEN); Hypochromasia 3+; Platelet Estimate ADEQ
[2019-09-30 18:45] LABS: Elliptocytes 2+; Teardrop Cell 2+
--- NOTE | 2019-09-30 18:55 | RAD REPORT ---
EXAM DESCRIPTION: CT - Abdomen Pelvis W Contrast - 09/30/2019 6:28 pm CLINICAL HISTORY: Abd pain;GI bleed COMPARISON: CT CHEST ABD PELVIS W CONTRAST dated 09/24/2014 TECHNIQUE: Biphasic, helical CT imaging of the abdomen and pelvis was performed following 100 ml non -ionic IV contrast. No oral contrast administered. All CT scans are performed using dose optimization technique as appropriate and may include automated exposure control or mA/KV adjustment according to patient size. FINDINGS: No suspicious findings in the lung bases. The liver, spleen, and pancreas show no suspicious findings. No cholecystectomy clips are present. Bi liary tree is normal size. Gallbladder appears to be tightly contracted. There are clustered hyperden se foci in the gallbladder fossa probably small stones within the fundus of the contracted gallbladde r. Patient has numerous clips related to colon surgery in the calcifications in the gallbladder fossa are potentially related to that procedure. Active process at this site not suspected. Symmetric renal function is seen with no hydronephrosis or suspicious renal mass. No pyelonephritis o r acute parenchymal process. No bladder abnormalities. No adrenal abnormalities. Uterus and atrophic ovaries show no suspicious findings. Small hiatal hernia present. No gastric wall thickening or mass. No gastric dilatation. No acute smal l bowel abnormality identified. Appendix is absent by history. Colon is tortuous and redundant. There is a large amount of stool distending almost the entire colon. The small bowel right colon anastomot ic site shows no acute component. Mild stranding and edema seen in the perirectal fat. There are michael ral perirectal lymph nodes present. A discrete mass is not identifiable. The density of the stool cou ld potentially mask a rectal mass. Proctitis would be possible as well. No free air, free fluid or pneumatosis. No mass or bulky lymphadenopathy. Bony degenerative changes are present. No acute bone process identified IMPRESSION: Edema of the perirectal fat is present with several perirectal lymph nodes. A discrete m ass is not identified. This could be a proctitis. Small mass could potentially be masked by the large , dense stool volume that distends the rectum. There is a large amount of stool distending the remainder of the colon. No other site of wall thicken ing, edema or adjacent fat stranding. No acute finding. Suspected small gallstones in the fundus of a contracted gallbladder.
--- NOTE | 2019-09-30 19:02 | P.HP ---
Certification for Inpatient Patient admitted to: Inpatient With expected LOS: >2 Midnights Patient will require the following post-hospital care: None Practitioner: I am a practitioner with admitting privileges, knowledge of patient current condition, hospital course, and medical plan of care. Services: Services provided to patient in accordance with Admission requirements found in Title 42 Section 412.3 of the Code of Federal Regulations Patient History Date of Service: 09/30/19 Primary Care Provider: Yoan Reason for admission: GIB History of Present Illness: 74-year-old female with medical history of hypertension, hyperlipidemia, asthma, CVA in 2017 presents the emergency department after having routine blood work done with her PCP that showed her hemoglobin was low at 5.8. Patient was brought to the emergency department and had additional CBC done that showed a hemoglobin of 5.9. Patient denies abdominal pain, denies bright-red blood per stool or vomit. During her stay the emergency department patient did have a loose brown a bowel movement that was positive for occult blood. ED provider ordered transfusion of 2 units of packed red blood cells. ED provider also spoke with gastroenterology who agreed to see patient in the hospital. When I saw the patient in the emergency department she was awake, alert, oriented x3. Patient does appear pale. Vital signs stable, patient is not tachycardic or hypotensive at this time. Patient also not taking any beta blockers that I can tell. Patient does report that she takes Xarelto the unsure what the clinical indication is for this. Patient not aware that she has any arrhythmias. Patient does report history of CVA in 2017. Patient be admitted for further evaluation and management. Allergies atorvastatin calcium [From Lipitor] Adverse Reaction (Verified 10/06/14 09:34) muscle cramps prednisone Adverse Reaction (Verified 10/06/14 09:34) swelling Home medications list reviewed: Yes Home Medications: Albuterol Sulfate [Proair Hfa] 8.5 gm IH Q4HP PRN 10/06/14 Fish Oil/Dha/Epa [Fish Oil 1,200 mg Fish Oil] 1 each PO DAILY 10/06/14 Fluticasone/Salmeterol [Advair 250/50 Diskus*] 1 puff IH BID 10/06/14 Furosemide [Lasix*] 20 mg PO EVERY 3RD DAY 10/06/14 Loratadine [Claritin*] 10 mg PO DAILY 10/06/14 Lovastatin [Mevacor*] 40 mg PO BEDTIME 10/06/14 Multivitamin [Multivitamins] 1 each PO DAILY 10/06/14 Niacin [Niacin ER] 500 mg PO DAILY 10/06/14 lisinopriL [Prinivil*] 20 mg PO DAILY WITH BREAKFAST 10/06/14 Codeine/APAP [Tylenol #3*] 1 tab PO Q4HP PRN #40 tab 10/12/14 - Past Medical/Surgical History Diabetic: No -: Osteoarthritis -: Hypertension -: Asthma -: Varicose veins -: Hyperlipidemia -: CVA -: fibroid cysts remove bilat breasts -: left elbow surg. -: appendectomy at 12 yrs of age -: right hand surg-laceration Psychosocial/ Personal History: She is , has no children. She retired. - Family History Father -: Heart disease Notes: mother-malignant lymphoma - Social History Alcohol use: Yes CD- Drugs: No Caffeine use: Yes Place of Residence: Home Review of Systems 10-point ROS is otherwise unremarkable General: Weakness, Other (Fatigue) Physical Examination - Physical Exam General: Alert, In no apparent distress HEENT: Atraumatic, PERRLA, Other (Mucous membranes dry, pale), EOMI, Sclerae nonicteric Neck: Supple, 2+ carotid pulse no bruit, No LAD, Without JVD or thyroid abnormality Respiratory: Clear to auscultation bilaterally, Normal air movement Cardiovascular: Regular rate/rhythm, Normal S1 S2 Gastrointestinal: Normal bowel sounds, No tenderness Musculoskeletal: No tenderness Integumentary: No rashes, Other (Skin is pale) Neurological: Normal gait, Normal speech, Normal strength at 5/5 x4 extr, Normal tone, Normal affect Lymphatics: No axilla or inguinal lymphadenopathy - Studies Laboratory Data (last 24 hrs) 09/30/19 16:52: WBC 10.0, Hgb 5.9 L*, Hct 21.0 L, Plt Count 360 09/30/19 16:52: Sodium 141, Potassium 4.1, BUN 23 H, Creatinine 0.67, Glucose 102, Total Bilirubin 0.2, AST 11 L, ALT 17, Alkaline Phosphatase 67, Lipase 99 Assessment and Plan - Plan Assessment GI bleed with microcytic anemia Hypertension Hyperlipidemia History of CVA Asthma Plan GI bleed with microcytic anemia: Patient will be transfuse 2 units packed red blood cells in the emergency department. Will monitor hemoglobin hematocrit closely. Patient be admitted on telemetry. Protonix 40 mg IV b.i.d.. Will hold patient's blood thinners and no DVT prophylaxis this time aside from SCDs. Gastroenterology has been consulted. Appreciate further input from gastroenterology. NPO after midnight. Will also obtain ferritin, TIBC, iron levels. Hypertension: Patient's blood pressure is on the low side of normal at this time. Will hold off on any blood pressure medications. Hyperlipidemia: Obtain and continue patient's home medications. History of CVA: Patient states that she takes Xarelto, unsure the indication. Will hold at this time. Will also hold any other anti-platelet medications. Asthma: Albuterol inhaler in place as needed. Discharge Plan: Home Plan to discharge in: 72 Hours - Advance Directives Does patient have a Living Will: No Does patient have a Durable POA for Healthcare: Yes - Code Status/Comfort Care Code Status Assessed: Yes (Patient is full code) Critical Care: No Time Spent Managing Pts Care (In Minutes): 55
[2019-09-30] MEDS ORDERED: PANTOPRAZOLE 40 MG INJ ONE (19:20)
[2019-09-30] MEDS ORDERED: NA CHLORIDE 0.9% 100 ML IV ONE (19:41)
[2019-09-30] MEDS ORDERED: NA CHLORIDE 0.9% 500 ML ONE (20:54)
[2019-09-30] MEDS ORDERED: ONDANSETRON 4 MG/2 ML VIAL IV PRN (22:07)
[2019-09-30] MEDS ORDERED: ACETAMINOPHEN 500 MG TAB PO PRN (22:07)
[2019-09-30] MEDS ORDERED: SODIUM CHLORIDE 0.9% 10ML INJ IV PRN (22:07)
[2019-09-30] MEDS ORDERED: ALBUTEROL INHALER 60 PUFF/8 GM IH PRN (22:07)
[2019-09-30] MEDS ORDERED: NA CHLORIDE 0.9% 250 ML ONE (23:37)
[2019-10-01] MEDS ORDERED: FUROSEMIDE 20 MG/ 2ML VIAL IV ONE (01:09)
[2019-10-01 01:28] VITALS: BMI 22.4
[2019-10-01] MEDS: NA CHLORIDE 0.9% 1,000 ML IV SCH ×2 (02:07→12:23)
[2019-10-01] MEDS: PANTOPRAZOLE 40 MG INJ IVP SCH ×3 (02:17→20:43)
[2019-10-01 05:07] LABS: Hematocrit 27.7 % (36.0-45.0); MPV 8.8 fL (7.6-11.3); RBC Red Blood Cell Count 4.36 M/uL (3.86-4.86)
[2019-10-01 05:11] LABS: Protime INR 1.21
[2019-10-01 05:22] LABS: BUN Blood Urea Nitrogen 17 mg/dL (7-18); Bicarbonate 25 mmol/L (21-32); Ferritin 3.3 ng/mL (8-388); Glucose Level 81 mg/dL (74-106); Potassium 3.5 mmol/L (3.5-5.1); Sodium Level 143 mmol/L (136-145); Transferrin 259 mg/dL (200-360)
[2019-10-01] MEDS ORDERED: KCL 20 MEQ/100 mL IVPB 20 MEQ/100 ML BAG IV SCH (07:00)
[2019-10-01 07:03] LABS: Anisocytosis 3+; Blood Morphology Comment NOTED (NOT SEEN); Hypochromasia 2+; Platelet Estimate ADEQ; Polychromasia 1+; Rouleau NOTED
--- NOTE | 2019-10-01 09:35 | P.PN ---
Subjective Date of Service: 10/01/19 Primary Care Provider: Milton Chief Complaint: GIB Subjective: Improving Review of Systems 10-point ROS is otherwise unremarkable General: Other (Fatigued) Physical Examination - Vital Signs Temperature: 97.0 F Blood Pressure: 120/56 Pulse: 72 Respirations: 16 Pulse Ox (%): 97 - Physical Exam General: Alert, In no apparent distress HEENT: Atraumatic, PERRLA, EOMI Neck: Supple, JVD not distended Respiratory: Clear to auscultation bilaterally, Normal air movement Cardiovascular: Regular rate/rhythm, Normal S1 S2 Gastrointestinal: Normal bowel sounds, No tenderness Musculoskeletal: No tenderness Integumentary: No rashes Neurological: Normal speech, Normal tone, Normal affect - Studies Laboratory Data (last 24 hrs) 09/30/19 16:52: WBC 10.0, Hgb 5.9 L*, Hct 21.0 L, Plt Count 360 09/30/19 16:52: Sodium 141, Potassium 4.1, BUN 23 H, Creatinine 0.67, Glucose 102, Total Bilirubin 0.2, AST 11 L, ALT 17, Alkaline Phosphatase 67, Lipase 99 Medications List Reviewed: Yes Assessment & Plan Discharge Plan: Home Plan to discharge in: 48 Hours - Code Status/Comfort Care Code Status Assessed: Yes (Patient is full code) Physician Review Additional Text: Assessment GI bleed with microcytic anemia Hypertension Hyperlipidemia History of CVA Asthma Plan GI bleed with microcytic anemia: Patient was transfused 2 units packed red blood cells yesterday hemoglobin has improved significantly and is currently 8.5. Will continue to monitor this closely. Patient be admitted on telemetry. Protonix 40 mg IV b.i.d.. Will hold patient's blood thinners and no DVT prophylaxis this time aside from SCDs. Gastroenterology has been consulted. Appreciate further input from gastroenterology. NPO after midnight. Hypertension: Patient's blood pressure is on the low side of normal at this time. Will hold off on any blood pressure medications. Hyperlipidemia: Obtain and continue patient's home medications. History of CVA: Patient states that she takes Xarelto, unsure the indication. Will hold at this time. Will also hold any other anti-platelet medications. Asthma: Albuterol inhaler in place as needed. Critical Care: No Time Spent Managing Pts Care (In Minutes): 55
[2019-10-01] MEDS ORDERED: Ringers Lactate 1,000 ML IV ONE (09:56)
[2019-10-01] MEDS ORDERED: propofoL 200 MG/20 ML VIAL IV ONE (10:04)
[2019-10-01] MEDS ORDERED: LIDOCAINE 1% MPF 5 ML VIAL ONE (10:17)
[2019-10-01 10:51] VITALS: O2SAT 95
[2019-10-01] MEDS ORDERED: PNEUMOCOCCAL VACCINE 0.5 ML IMVAC ONE (11:00)
--- NOTE | 2019-10-01 14:24 | P.DS ---
Admission Date: 09/30/19 Discharge Date: 10/02/19 Primary Care Provider: Milton Discharge Condition: GOOD Reason for Admission: GIB Consultations: Gastroenterology- Dr. Rivera Procedures: CT abdomen pelvis FINDINGS: No suspicious findings in the lung bases. The liver, spleen, and pancreas show no suspicious findings. No cholecystectomy clips are present. Biliary tree is normal size. Gallbladder appears to be tightly contracted. There are clustered hyperdense foci in the gallbladder fossa probably small stones within the fundus of the contracted gallbladder. Patient has numerous clips related to colon surgery in the calcifications in the gallbladder fossa are potentially related to that procedure. Active process at this site not suspected. Symmetric renal function is seen with no hydronephrosis or suspicious renal mass. No pyelonephritis or acute parenchymal process. No bladder abnormalities. No adrenal abnormalities. Uterus and atrophic ovaries show no suspicious findi ngs. Small hiatal hernia present. No gastric wall thickening or mass. No gastric dilatation. No acute small bowel abnormality identified. Appendix is absent by history. Colon is tortuous and redundant. There is a large amount of stool distending almost the entire colon. The small bowel right colon anastomotic site shows no acute component. Mild stranding and edema seen in the perirectal fat. There are several perirectal lymph nodes present. A discrete mass is not identifiable. The density of the stool could potentially mask a rectal mass. Proctitis would be possible as well. No free air, free fluid or pneumatosis. No mass or bulky lymphadenopathy. Bony degenerative changes are present. No acute bone process identified IMPRESSION: Edema of the perirectal fat is present with several perirectal lymph nodes. A discrete mass is not identified. This could be a proctitis. Small mass could potentially be masked by the large, dense stool volume that distends the rectum. There is a large amount of stool distending the remainder of the colon. No other site of wall thickening, edema or adjacent fat stranding. No acute finding. Suspected small gallstones in the fundus of a contracted gallbladder. Medical problem list Acute upper GI bleed secondary to duodenal angiodysplasia-resolved Gastritis Hypertension Hyperlipidemia Osteoarthritis History of CVA Brief History of Present Illness: 74-year-old female with medical history of hypertension, hyperlipidemia, asthma, CVA in 2017 presents the emergency department after having routine blood work done with her PCP that showed her hemoglobin was low at 5.8. Patient was brought to the emergency department and had additional CBC done that showed a hemoglobin of 5.9. Patient denies abdominal pain, denies bright-red blood per stool or vomit. During her stay the emergency department patient did have a loose brown a bowel movement that was positive for occult blood. ED provider ordered transfusion of 2 units of packed red blood cells. ED provider also spoke with gastroenterology who agreed to see patient in the hospital. When I saw the patient in the emergency department she was awake, alert, oriented x3. Patient does appear pale. Vital signs stable, patient is not tachycardic or hypotensive at this time. Patient also not taking any beta blockers that I can tell. Patient does report that she takes Xarelto the unsure what the clinical indication is for this. Patient not aware that she has any arrhythmias. Patient does report history of CVA in 2017. Patient be admitted for further evaluation and management. Hospital Course: Patient was admitted from the emergency department and received 2 units packed red blood cells during her stay overnight. Patient's hemoglobin improved from 5.8-8.5. Patient remained NPO after midnight and was seen by gastroenterology yesterday morning. Patient had EGD this morning which revealed mild gastritis and duodenal angiodysplasia with some mild bleeding. Gastroenterology was able to ligate this area and bleeding has ceased. Hemoglobin and hematocrit did drop slightly overnight with hemoglobin going down to 7.8, these labs were repeated this afternoon and hemoglobin came up to 8.7. Discussed this with gastroenterology who believes that patient is stable for discharge at this time. Patient's blood pressure and heart rate remained stable, patient is at baseline mental status. After discussing case with gastroenterology and attending physician will discontinue patient's Xarelto that she is taking for history of CVA. No history of atrial fibrillation or other reason and can be identified. Gastroenterology okay with patient being placed on daily aspirin this time. Will have patient follow up on outpatient basis with Gastroenterology for outpatient colonoscopy as she is not had one in the last 4-5 years. Patient also to follow up with primary care doctor for further adjustment of her medications for hypertension, hyperlipidemia, and osteoarthritis. Vital Signs/Physical Exam: Temp Pulse Resp BP Pulse Ox 97.2 F 66 16 132/60 96 10/01/19 12:00 10/01/19 12:00 10/01/19 12:00 10/01/19 12:00 10/01/19 12:00 General: Alert, In no apparent distress HEENT: Atraumatic, PERRLA, EOMI Neck: Supple, JVD not distended Respiratory: Clear to auscultation bilaterally, Normal air movement Cardiovascular: Regular rate/rhythm, Normal S1 S2 Gastrointestinal: Normal bowel sounds, No tenderness Musculoskeletal: No tenderness Integumentary: No rashes Neurological: Normal speech, Normal tone, Normal affect Lymphatics: No axilla or inguinal lymphadenopathy Laboratory Data at Discharge: WBC 10.3 K/uL (4.3-10.9) 10/01/19 04:18 Hgb 8.5 g/dL (12.0-15.0) L D 10/01/19 04:18 Hct 27.7 % (36.0-45.0) L D 10/01/19 04:18 Plt Count 281 K/uL (152-406) D 10/01/19 04:18 PT 14.2 SECONDS (9.5-12.5) H 10/01/19 04:18 INR 1.21 10/01/19 04:18 APTT 29.6 SECONDS (24.3-36.9) 10/01/19 04:18 Sodium 143 mmol/L (136-145) 10/01/19 04:18 Potassium 3.5 mmol/L (3.5-5.1) 10/01/19 04:18 BUN 17 mg/dL (7-18) 10/01/19 04:18 Creatinine 0.60 mg/dL (0.55-1.3) 10/01/19 04:18 Glucose 81 mg/dL (74-106) 10/01/19 04:18 Total Bilirubin 0.2 mg/dL (0.2-1.0) 09/30/19 16:52 AST 11 U/L (15-37) L 09/30/19 16:52 ALT 17 U/L (12-78) 09/30/19 16:52 Alkaline Phosphatase 67 U/L (45-117) 09/30/19 16:52 Lipase 99 U/L (73-393) 09/30/19 16:52 Home Medications: Aspirin [Aspirin EC 81 MG] 81 mg PO DAILY #30 tablet. 10/02/19 Ezetimibe 1 tab PO DAILY 10/02/19 Famotidine 1 tab PO BEDTIME 10/02/19 Gabapentin 1 tab PO BEDTIME 10/02/19 Lisinopril [Zestril] 1 tab PO DAILY 10/02/19 Lovastatin 1 tab PO BEDTIME 10/02/19 Solifenacin Succinate [Vesicare] 1 tab PO DAILY 10/02/19 New Medications: Aspirin [Aspirin EC 81 MG] 81 mg PO DAILY #30 tablet. Patient Discharge Instructions: 1. Patient may follow up with primary care doctor in gastroenterology on outpatient basis. Patient will require colonoscopy as well. 2. Discontinue the use of Xarelto and substitute with daily aspirin 81 mg p.o. daily. Please inform your primary care doctor this change due to the GI bleed that took place. 3. Patient was admitted from the emergency department and received 2 units packed red blood cells during her stay overnight. Patient's hemoglobin improved from 5.8-8.5. Patient remained NPO after midnight and was seen by gastroenterology yesterday morning. Patient had EGD this morning which revealed mild gastritis and duodenal angiodysplasia with some mild bleeding. Gastroenterology was able to ligate this area and bleeding has ceased. Hemoglobin and hematocrit did drop slightly overnight with hemoglobin going down to 7.8, these labs were repeated this afternoon and hemoglobin came up to 8.7. Discussed this with gastroenterology who believes that patient is stable for discharge at this time. Patient's blood pressure and heart rate remained stable, patient is at baseline mental status. After discussing case with gastroenterology and attending physician will discontinue patient's Xarelto that she is taking for history of CVA. No history of atrial fibrillation or other reason and can be identified. Gastroenterology okay with patient being placed on daily aspirin this time. Will have patient follow up on outpatient basis with Gastroenterology for outpatient colonoscopy as she is not had one in the last 4-5 years. Patient also to follow up with primary care doctor for further adjustment of her medications for hypertension, hyperlipidemia, and osteoarthritis. Diet: AHA Activity: Wheelchair as needed Time spent managing pt's care (in minutes): 55
[2019-10-02] MEDS: NA CHLORIDE 0.9% 1,000 ML IV SCH (02:36)
[2019-10-02 05:36] LABS: Protime INR 1.16
[2019-10-02 05:39] LABS: Hematocrit 25.4 % (36.0-45.0); MPV 8.8 fL (7.6-11.3); RBC Red Blood Cell Count 4.02 M/uL (3.86-4.86)
[2019-10-02 06:09] LABS: BUN Blood Urea Nitrogen 12 mg/dL (7-18); Bicarbonate 23 mmol/L (21-32); Glucose Level 78 mg/dL (74-106); Potassium 3.9 mmol/L (3.5-5.1); Sodium Level 148 mmol/L (136-145)
[2019-10-02 06:42] LABS: Anisocytosis 3+; Blood Morphology Comment NOTED (NOT SEEN); Hypochromasia 2+; Platelet Estimate ADEQ
[2019-10-02] MEDS: PANTOPRAZOLE 40 MG INJ IVP SCH (08:25)
[2019-10-02] MEDS ORDERED: POTASSIUM CL SA 10 MEQ TAB PO ONE (10:04)
[2019-10-02 12:30] LABS: Hematocrit 29.4 % (36.0-45.0)
[2019-10-02 15:03] VITALS: BP 124/62; TEMP 97.9
--- NOTE | 2019-10-03 00:43 | OP ---
Surgeon: Harsh Rivera MD Additional Attending Physician: Osmani Dean. Procedure Performed: Esophagogastroduodenoscopy. Indication For Procedure: Anemia, suspected upper gastrointestinal bleed. Plan For Anesthesia: Monitored anesthesia care. Complexity: Average. Technique: After obtaining informed consent from the patient and explaining risks and complications which include, but are not limited to bleeding, infection, perforation, and anesthesia complication, the patient was placed in the left lateral position and sedation was given. From then on, the scope was advanced to the mouth and carefully guided up till the 3rd portion of the duodenum. After the co mpletion of examination, scope and equipment were withdrawn and procedure terminated in a safe manner . Findings: Esophagus: No gross lesion seen in the entire esophagus. Stomach: [id number] patchy erythema seen in the body and antrum. Biopsies taken. Duodenum: In the duodenal bulb, a small angiodysplasia was seen. This was treated with ablation. T he second and third portion appeared normal. Complications: None. Tolerance To Anesthesia: Excellent. Postoperative Diagnosis: Gastritis, duodenal arteriovenous malformation. Plan: 1.Await pathology results. 2.Oral PPI. 3.Follow up in the GI Clinic. 4.Due to her history of large colonic polyp, she will need a colonoscopy, which we can schedule on a n outpatient basis. The patient is unsure if she even wants to, but however, I strongly recommended that. She is prone for now, at least stated that she is going to follow up with us in the clinic. /FENGL Voice ID: [id number] Report ID: [id number]
== END 2019-10-02 15:25 | disposition home or self-care (01) | DRG 378 ==
LOC: ER 14:14 → ERHOLD 18:33 → 2ND 21:20
PROVIDERS: ADMIT Internal Medicine; ATTEND Internal Medicine
PROC: 30233N1 Transfusion of Nonautologous Red Blood Cells into Peripheral Vein, Percutaneous Approach (ICD-10-PCS; 2019-09-30)
PROC: 0W3P8ZZ Control Bleeding in Gastrointestinal Tract, Via Natural or Artificial Opening Endoscopic (ICD-10-PCS; principal; 2019-10-02)
PROC: 0DB78ZX Excision of Stomach, Pylorus, Via Natural or Artificial Opening Endoscopic, Diagnostic (ICD-10-PCS; 2019-10-02)
DX: K31.811 Angiodysplasia of stomach and duodenum with bleeding (principal); D62 Acute posthemorrhagic anemia; E78.5 Hyperlipidemia, unspecified; I10 Essential (primary) hypertension; D50.9 Iron deficiency anemia, unspecified; I49.9 Cardiac arrhythmia, unspecified; J45.909 Unspecified asthma, uncomplicated; K29.70 Gastritis, unspecified, without bleeding; M19.90 Unspecified osteoarthritis, unspecified site; Q27.33 Arteriovenous malformation of digestive system vessel; Z88.8 Allergy status to other drugs, medicaments and biological substances; Z79.899 Other long term (current) drug therapy; Z79.891 Long term (current) use of opiate analgesic; Z90.49 Acquired absence of other specified parts of digestive tract; Z86.73 Personal history of transient ischemic attack (TIA), and cerebral infarction without residual deficits; Z11.59 Encounter for screening for other viral diseases
CPT/HCPCS: 36415; 74177; 80048; 80061; 80076; 82728; 82947; 83540; 83690; 84439; 84443; 84466; 85014; 85018; 85025; 85610; 85730; 86850; 86900; 86901; 88305; 88312; 90471; 90670; 96374; 99285; C9113; J1940; J2704; J3480; J7030; J7040; J7050; J7120; P9016; Q9967; U0002

== ENCOUNTER 2020-11-20 19:41 | Inpatient (IN) | payer OTHER ==
[2020-11-20 20:09] LABS: Absolute Lymphocytes (CBC) 2.2 K/uL (0.7-4.9); Basophils % 0.7 % (0-1.3); Hematocrit 42.8 % (36.0-45.0); Lymphocytes % 20.3 % (15.3-44.8); MPV 7.8 fL (7.6-11.3); RBC Red Blood Cell Count 4.72 M/uL (3.86-4.86)
[2020-11-20 20:12] LABS: Protime INR 1.15
--- NOTE | 2020-11-20 20:18 | RAD REPORT ---
EXAM DESCRIPTION: CT - Ct Stroke Brain Wo Cont - 11/20/2020 7:56 pm CLINICAL HISTORY: Aphasia;Confused;Weakness COMPARISON: Ct Stroke Brain Wo Cont dated 06/16/2016 TECHNIQUE: Axial 5 millimeter thick images of the head were obtained without IV contrast. All CT scans are performed using dose optimization technique as appropriate and may include automated exposure control or mA/KV adjustment according to patient size. FINDINGS: No intracranial hemorrhage, mass, or cerebral edema. No acute cortical based infarction id entified. No cortical edema or sulcal effacement. Patient has a mild underlying atrophy. Ventricles a re in proportion to the volume loss. Arterial tree is densely calcified. Patient has a dense right mi ddle cerebral artery which has been described as indirect evidence for CVA. However, the patient has large areas of encephalomalacia in the right temporal, occipital and parietal lobes from prior right MCA distribution infarction. Right greater than left chronic ischemic changes are present. No extra-a xial fluid collections. Physiologic calcifications are present. Visualized portions of the mastoid air cells, paranasal sinuses, and orbits are unremarkable. Findings telephoned to Dr Casey 8:00 p.m. IMPRESSION: No intracranial hemorrhage is present and no acute cortical based infarction identifiabl e. Patient has significant right cerebral encephalomalacia from prior CVA in 2017. There is significa nt superimposed chronic ischemic change. Dense arterial tree calcifications are present.
--- NOTE | 2020-11-20 20:18 | RAD REPORT ---
EXAM DESCRIPTION: CT - Head angio - 11/20/2020 7:56 pm CLINICAL HISTORY: APHASIA TECHNIQUE: During dynamic enhancement using nonionic IV contrast, axial 1 millimeter thick images of the head were obtained. Sagittal and axial reconstruction images were generated using MIP technique and reviewed. All CT scans are performed using dose optimization technique as appropriate and may include automated exposure control or mA/KV adjustment according to patient size. COMPARISON: CT head same date, CT angio neck same date FINDINGS: Left vertebral artery is dominant. Distal vertebral tortuosity is seen with calcification s along the vascular zaidi. The proximal and midportion of the basilar artery shows fusiform dilatati on to 10 mm in diameter with a large mural thrombus filling the artery. Stenosis is estimated 70%. Th is is favored to be chronic. There is a bulbous configuration to the basilar tip believed to be mayra l anatomic variant and not basilar tip aneurysm. Right posterior cerebral artery shows no acute or em ergent finding. Narrowing of the proximal portion left posterior cerebral artery P1 branches noted. Cavernous and supraclinoid portion of each internal carotid artery is ectatic and tortuous. Wall calc ifications are present without significant luminal narrowing. Anterior communicating artery is present. Anterior communicating artery show no significant disease. Left middle cerebral artery shows no significant or suspicious finding. There is abrupt truncation of the M1 segment right middle cerebral artery. There are small branches present extending towards the frontal lobe remnant temporal lobe tissue. Far peripheral right middle cerebral branches are diminish ed in number relative to the left. These changes are not unexpected given the large area of right cer ebral hemisphere old CVA from 2017. Major venous sinuses are patent. No aneurysm or vascular malformation seen. IMPRESSION: Dilated basilar artery with mural thrombus filling the proximal and midportion of the a rtery causing 70% stenosis. When comparing prior studies is believed to be chronic disease and not an acute basilar artery process. Truncated right middle cerebral artery at the M1 segment with few small anterior right middle cerebra l branches still intact and a few small branches supplying the superior aspect of the right parietal lobe. This pattern is not unexpected given prior CVA involving a large portion of the right cerebral hemisphere. Back affect internal carotid arteries with dense arterial tree calcifications. Significant luminal na rrowing or acute finding not identified.
--- NOTE | 2020-11-20 20:20 | RAD REPORT ---
EXAM DESCRIPTION: CT - Neck Angio - 11/20/2020 7:56 pm CLINICAL HISTORY: weakness, aphasic, altered mental status TECHNIQUE: During dynamic enhancement using nonionic IV contrast, axial 2 mm thick images of the nec k were obtained. Sagittal and axial reconstruction images were generated using MIP technique and revi ewed. All CT scans are performed using dose optimization technique as appropriate and may include automated exposure control or mA/KV adjustment according to patient size. COMPARISON: CT head same date FINDINGS: No aneurysm or vascular malformation identified. No carotid or vertebral dissection. No aortic arch or great vessel origin abnormality seen. Vertebral artery origins unremarkable as well . Common carotid and bulb calcifications bilaterally are present without a significant narrowing of t he vessel lumen. No focal abnormality of either vertebral artery. Basilar artery is normal. Left vert ebral artery is dominant has normal anatomic presentation. IMPRESSION: Negative CT angio neck examination for acute or significant finding.
--- NOTE | 2020-11-20 20:28 | RAD REPORT ---
EXAM DESCRIPTION: RAD - Chest Single View - 11/20/2020 8:15 pm CLINICAL HISTORY: AMS, Stroke protocol chest film COMPARISON: May 2016 TECHNIQUE: AP portable chest image was obtained 11/20/2020 8:15 pm . FINDINGS: Chronic interstitial pattern matches comparison. No peripheral mass, consolidation or fail ure finding. Heart and vasculature are normal. No measurable pleural effusion and no pneumothorax. No acute bony abnormality seen. No acute aortic findings suspected. Exam is not significantly different from comparison. IMPRESSION: No acute cardiopulmonary process.
[2020-11-20] MEDS ORDERED: ALTEPLASE 100 ML IV ONE (20:43)
[2020-11-20 21:05] LABS: BUN Blood Urea Nitrogen 23 mg/dL (7-18); Bicarbonate 25 mmol/L (21-32); Glucose Level 89 mg/dL (74-106); Potassium 4.4 mmol/L (3.5-5.1); Sodium Level 142 mmol/L (136-145); Troponin (Emerg Dept Use Only) < 0.02 ng/mL (0.0-0.045)
--- NOTE | 2020-11-20 21:33 | EDPHYS ---
Physician Documentation [facility] Name: Rocio Dawson Age: 75 yrs Sex: Female : 1945 Arrival Date: 11/20/2020 Time: 19:38 Bed 3 Private MD: ED Physician Charles Casey HPI: 11/20 19:40 This 75 yrs old Female presents to ER via Unassigned with complaints of rn Altered mental status, aphasia, weakness. 19:40 The patient presents to the emergency department with weakness of the right upper rn extremity, right lower extremity, left side of the face, a speech or higher order brain function problem, aphasia. Onset: The symptoms/episode began/occurred at an unknown time. Associated signs and symptoms: Pertinent positives: altered mental status. Severity of symptoms: At their worst the symptoms were severe in the emergency department the symptoms are unchanged. Current symptoms: confusion, dysphasia. The patient has experienced a previous episode. 20:05 It is unknown whether or not the patient has recently seen a physician. EMS ran on rn patient last night for lift assist was at baseline at that time. Call began at 5:00 today for weakness and difficulty speaking, at that time has been refused transport to hospital despite EMS recommendation. EMS turned away and was called again 1 or 2 hours later with worsening of symptoms. Patient with very large stroke in the past with baseline left sided hemiparesis but patient's states usually can converse. Was trying to take her to the table to eat today at about 4 PM when he noticed that she was having difficulty speaking that progressed to aphasia.. Historical: - Allergies: 20:08 Lipitor; ea 20:08 Prednisone; ea - Home Meds: 20:08 lisinopril Oral [Active]; ea - PMHx: 20:08 CVA; Hyperlipidemia; Hypertension; varicose veins; ea - Immunization history:: Adult Immunizations unknown. - Family history:: not pertinent. - Social history:: Smoking status: unknown. - Hospitalizations: : No recent hospitalization is reported. ROS: 20:05 Unable to obtain ROS due to altered mental status. rn Exam: 20:05 Constitutional: This is a well developed, patient, awake, seems confused and not rn following commands Head/Face: Normocephalic, atraumatic. Eyes: Pupils equal round and reactive to light, tracks and looks around room Neck: Supple, full range of motion without nuchal rigidity, or vertebral point tenderness. No Meningismus. Cardiovascular: Irregular rhythm, regular rate. Respiratory: No increased work of breathing, no retractions or nasal flaring. Abdomen/GI: Soft, non-tender Skin: Warm, dry MS/ Extremity: Pulses equal, no cyanosis Neuro: Awake, not following commands, looks at people in the room to both sides of body. Left side total hemiparesis which is her baseline per . No effort against gravity right upper and right lower extremity. Does move hand and right foot to painful stimuli. Left-sided partial paralysis of face. Aphasic Vital Signs: 20:15 BP 155 / 68; Pulse 80; Resp 19; Temp 97.6; Pulse Ox 92% ; ea 20:21 Weight 58.97 kg; wg 21:29 BP 151 / 90; Pulse 69; Resp 16; Pulse Ox 93% on 2 lpm NC; ea 22:24 BP 123 / 70; Pulse 69; Resp 16; Pulse Ox 98% ; ea NIH Stroke Scale Scores: 19:49 NIHSS Score: 17 rn 20:05 NIHSS Score: 17 ea MDM: 19:38 Patient medically screened. rn 19:49 ED course: is here states he thinks last known normal was 4 PM, states was rn taking her to the table when she was talking while she was sitting there she started having difficulty speaking and then to the point where he was not speaking at all. Called EMS but when they arrived he refused transport. He called 2 hours later saying that he made the wrong decision and that he would like her transported to the hospital. adamant that patient does not be transported to [place] as it is inconvenient to him and does not know who would pay for the cost. Had a long lengthy discussion regarding stroke and possibility of TPA, has been his medical power of document review attorney and agrees with TPA if indicated, but does not want to be transferred to [place] and is very upset. Expressed urgency of the situation and he is considering his options. Patient with a large baseline deficit with hemiparesis of the left upper extremity left lower extremity. Today she seems confused with left facial partial paralysis and no effort against gravity on the right upper extremity and right lower extremity. Totally aphasic. Does not follow commands.. 20:05 ED course: Awaiting CT read of CT stroke protocol prior to making decision about TPA rn and still trying to decide.. 20:18 ED course: CT head without acute findings per radiology, CT angios shows diffuse rn stenosis and could mask acute problems per radiology. Unable to get a hold of Dr. Quiñones for consultation. Spoke with and given extent of CVA and patient's is sure symptoms began between 4 and 430, will recommend TPA given no gross contraindications at this time. states patient only intermittently takes baby aspirin and no stronger blood thinner. Previous CVA in the distant past. And no trauma or invasive procedure performed recently.. 20:27 ED course: Consulted with Dr. Quiñones, agrees with TPA administration. States we can rn keep patient here following TPA administration.. 21:26 ED course: Patient showing some improvement after TPA administration strength in right rn upper and right lower extremity, can now lift hand and foot off of bed but not leg. Seems more alert and responsive but still aphasic.. 21:29 Data reviewed: vital signs, nurses notes, lab test result(s), EKG, radiologic studies, rn CT scan, plain films, and as a result, I will admit patient. Data interpreted: phototypesetting equipment monitor: rate is 80 beats/min, rhythm is normal sinus rhythm, regular, with no ectopy, Interpretation: normal rate, normal rhythm, Pulse oximetry: on room air is 92 %. Interpretation: acceptable, Plan: O2 by NC applied. Test interpretation: by ED physician or midlevel provider: ECG, plain radiologic studies, Chest x-ray negative for acute abnormality.. Counseling: I had a detailed discussion with the patient and/or guardian regarding: the historical points, exam findings, and any diagnostic results supporting the discharge/admit diagnosis, lab results, radiology results, the need for further work-up and treatment in the hospital. Response to treatment: the patient's symptoms have mildly improved after treatment, and as a result, I will admit patient. Admission orders: after a detailed discussion of the patient's condition and case, the admit orders are written by me. 11/20 19:39 Order name: Basic Metabolic Panel; Complete Time: 21:18 rn 11/20 19:39 Order name: CBC with Diff; Complete Time: 20:11 rn 11/20 19:39 Order name: Protime (+inr); Complete Time: 20:23 rn 11/20 19:39 Order name: Ptt, Activated; Complete Time: 20:23 rn 11/20 19:39 Order name: Troponin (emerg Dept Use Only); Complete Time: 21:18 rn 11/20 19:44 Order name: glucometer results - FOR PT WITH NO ID 11/20 21:36 Order name: SARS-COV-2 RT PCR EDPR 11/21 05:31 Order name: Protime (+INR) EDPR 11/21 05:31 Order name: PTT, Activated Partial Thromb EDPR 11/21 05:33 Order name: CBC with Automated Diff EDPR 11/21 06:21 Order name: Comprehensive Metabolic Panel EDPR 11/21 06:21 Order name: Phosphorus EDPR 11/21 06:21 Order name: Lipid Profile [facility] 11/20 19:39 Order name: CT Stroke Brain w/o Contrast; Complete Time: 20:23 rn 11/20 19:39 Order name: Stroke CXR 1 View; Complete Time: 20:31 rn 11/20 19:39 Order name: EKG; Complete Time: 19:43 rn 11/20 19:40 Order name: CT Head Angio; Complete Time: 20:23 rn 11/20 19:40 Order name: CT Neck Angio; Complete Time: 20:23 rn 11/20 21:34 Order name: CONS Physician Consult [facility] 11/21 06:21 Order name: Magnesium [facility] 11/21 06:21 Order name: Thyroid Stimulating Hormone [facility] 11/21 09:10 Order name: MRI [facility] 11/21 09:18 Order name: MRI [facility] 11/21 09:23 Order name: Glucose, Ancillary Testing [facility] 11/21 10:07 Order name: MRI [facility] 11/21 13:14 Order name: Glucose, Ancillary Testing [facility] 11/21 14:37 Order name: CT EDPR 11/21 18:01 Order name: Glucose, Ancillary Testing [facility] 11/20 19:39 Order name: Accucheck; Complete Time: 19:44 rn 11/20 19:39 Order name: Cardiac monitoring; Complete Time: 19:44 rn 11/20 19:39 Order name: EKG - Nurse/Tech; Complete Time: 21:11 rn 11/20 19:39 Order name: IV Saline Lock; Complete Time: 19:44 rn 11/20 19:39 Order name: Labs collected and sent; Complete Time: 19:49 rn 11/20 19:39 Order name: NPO; Complete Time: 19:44 rn 11/20 19:39 Order name: O2 Per Protocol; Complete Time: 19:44 rn 11/20 19:39 Order name: O2 Sat Monitoring; Complete Time: 19:44 rn 11/20 19:39 Order name: Stroke Swallow Screen; Complete Time: 21:12 rn Administered Medications: 20:30 Drug: ACTIvase (alteplase) {Co-Signature: em (Db Muhammad RN).} Route: IV ea Thrombolytics; Rate: calculated rate; Infused Over: 60 mins; 21:31 Follow up: Response: No adverse reaction ea Disposition Summary: 11/20/20 21:32 Hospitalization Ordered Hospitalization Status: Inpatient Admission rn Provider: Mukesh Ly rn Condition: Stable rn Problem: new rn Symptoms: have improved rn Bed/Room Type: Standard rn Location: Telemetry/MedSurg (Inpatient)(11/21/20 20:30) mw Room Assignment: [facility](11/21/20 20:30) Diagnosis - Cerebral infarction, unspecified rn - Weakness rn - Aphasia following cerebral infarction rn Forms: - Medication Reconciliation Form rn - SBAR form furnace erector time excluding procedures: 21:29 Critical care time: Bedside Care: 30 minutes, Consultation: 5 minutes, Family rn Intervention: 5 minutes. Total time: 40 minutes NIH Stroke Scale - NIH Stroke Score Date: 11/20/2020 Time: 19:49 Total Score = 17 1a. Level of Consciousness (LOC) - 0(Alert) 1b. Level of Consciousness (LOC) (Month \T\ Age) - 2(Neither) 1c. LOC Commands (Open \T\ Closes Eyes/Glucose And Syrup Weigher) - 2(Neither) 2. Best Gaze (Lateral Gaze Paresis) - 0(Normal) 3. Visual Field Loss - 0(No visual loss) 4. Facial Palsy - 2(Partial paralysis) 5a. Left Arm: Motor (10-second hold) - 0(No drift) 5b. Right Arm: Motor (10-second hold) - 3(No effort against gravity) 6a. Left Leg: Motor (5-second hold - always test supine) - 0(No drift) 6b. Right Leg: Motor (5-second hold - always test supine) - 3(No effort against gravity) 7. Limb Ataxia (finger/nose \T\ heel/talbert - test with eyes open) - 0(Absent) 8. Sensory Loss (pinprick arms/legs/face) - 0(Normal) 9. Best Language: Aphasia (description/naming/reading) - 3(Mute, global aphasia) 10. Dysarthria (speech clarity - read or repeat words) - 2(Severe) 11. Extinction and Inattention (visual/tactile/auditory/spatial/personal) - 0(No abnormality) Initials: reyna NIH Stroke Scale - NIH Stroke Score Date: 11/20/2020 Time: 20:05 Total Score = 17 1a. Level of Consciousness (LOC) - 0(Alert) 1b. Level of Consciousness (LOC) (Month \T\ Age) - 2(Neither) 1c. LOC Commands (Open \T\ Closes Eyes/Glucose And Syrup Weigher) - 2(Neither) 2. Best Gaze (Lateral Gaze Paresis) - 0(Normal) 3. Visual Field Loss - 0(No visual loss) 4. Facial Palsy - 2(Partial paralysis) 5a. Left Arm: Motor (10-second hold) - 0(No drift) 5b. Right Arm: Motor (10-second hold) - 3(No effort against gravity) 6a. Left Leg: Motor (5-second hold - always test supine) - 0(No drift) 6b. Right Leg: Motor (5-second hold - always test supine) - 3(No effort against gravity) 7. Limb Ataxia (finger/nose \T\ heel/talbert - test with eyes open) - 0(Absent) 8. Sensory Loss (pinprick arms/legs/face) - 0(Normal) 9. Best Language: Aphasia (description/naming/reading) - 3(Mute, global aphasia) 10. Dysarthria (speech clarity - read or repeat words) - 2(Severe) 11. Extinction and Inattention (visual/tactile/auditory/spatial/personal) - 0(No abnormality) Initials: selam Signatures: Dispatcher [employer] EDCandice Pina RN RN mw Nieto, Roman, MD MD rn Antunez, Elena, RN RN ea Edgar Munoz RN em Corrections: (The following items were deleted from the chart) 20:34 19:43 CORONAVIRUS+MR.LAB.BRZ ordered. EDMS EDMS 22:17 21:32 Intensive Care Unit rn mw 21:32 rn mw 11/21 20:30 11/20 22:17 BR ER HOLD mw mw 11/21 20:30 11/20 22:17 ERHOLD- mw mw
--- NOTE | 2020-11-20 21:33 | ER ---
Nurse's Notes [facility] Name: Rocio Dawson Age: 75 yrs Sex: Female : 1945 Arrival Date: 11/20/2020 Time: 19:38 Bed 3 Private MD: Diagnosis: Cerebral infarction, unspecified;Weakness;Aphasia following cerebral infarction Presentation: 11/20 20:06 Ebola Screen: No symptoms or risks identified at this time. Onset of symptoms was ea November 20, 2020 at 17:00. 20:06 Acuity: NIKA 3 ea 20:09 Initial Sepsis Screen: Does the patient meet any 2 criteria? No. Patient's initial ea sepsis screen is negative. Does the patient have a suspected source of infection? No. Patient's initial sepsis screen is negative. Risk Assessment: Do you want to hurt yourself or someone else? Patient reports no desire to harm self or others. 20:16 Chief complaint: EMS states: Toned to pt's home for weakness and stroke like symptoms, ea reports symptoms started at 4 PM. Coronavirus screen: At this time, the client does not indicate any symptoms associated with coronavirus-19. 20:16 Method Of Arrival: EMS: [facility] ea Historical: - Allergies: 20:08 Lipitor; ea 20:08 Prednisone; ea - Home Meds: 20:08 lisinopril Oral [Active]; ea - PMHx: 20:08 CVA; Hyperlipidemia; Hypertension; varicose veins; ea - Immunization history:: Adult Immunizations unknown. - Family history:: not pertinent. - Social history:: Smoking status: unknown. - Hospitalizations: : No recent hospitalization is reported. Screenin:05 Abuse screen: Denies threats or abuse. Nutritional screening: No deficits noted. ea Tuberculosis screening: No symptoms or risk factors identified. Fall Risk IV access (20 points). 20:11 The patient has not been NPO before screening. The patient is alert, able to follow ea commands. pt is aphasic The patient does not exhibit difficulty understanding words. The patient is unable to swallow own secretions without drooling or the need for suction. The patient failed the bedside swallow screening. The patient will be kept NPO until cleared by Speech Therapy or Physician. Assessment: 20:15 General: Appears uncomfortable, Behavior is quiet. Pain: Unable to use pain scale. ea FLACC scale score is 0 out of 10. Neuro: Level of Consciousness is awake, Oriented to none Facial droop on left. Cardiovascular: Patient's skin is warm and dry. Respiratory: Airway is patent Respiratory effort is even, unlabored, Respiratory pattern is regular, symmetrical. Derm: Skin is pink, warm \T\ dry. 21:58 Reassessment: Patient and/or family updated on plan of care and expected duration. Pain ea level reassessed. Pt resting with eyes closed, pt is able to understanding and follow commands. Neuro symptoms improved, able to wiggle fingers and attempts to raise right arm, is able to wiggle toes but is unable to raise right leg at this time. Is able to clear some secretions but requires suction PRN. reports he will be back tomorrow to see how she is doing. 11/21 21:21 Reassessment: Patient and/or family updated on plan of care and expected duration. Pain ea level reassessed. Patient is alert, oriented x 3, equal unlabored respirations, skin warm/dry/pink. Pt admitted to second floor, left ED via stretcher per ED nurse, pt tolerating well. Vital Signs: 11/20 20:15 BP 155 / 68; Pulse 80; Resp 19; Temp 97.6; Pulse Ox 92% ; ea 20:21 Weight 58.97 kg; wg 21:29 BP 151 / 90; Pulse 69; Resp 16; Pulse Ox 93% on 2 lpm NC; ea 22:24 BP 123 / 70; Pulse 69; Resp 16; Pulse Ox 98% ; ea NIH Stroke Scale Scores: 19:49 NIHSS Score: 17 rn 20:05 NIHSS Score: 17 ea ED Course: 19:38 Patient arrived in ED. mw2 19:38 Charles Casey MD is Attending Physician. rn 19:49 No provider procedures requiring assistance completed. Inserted saline lock: 20 gauge wg in right antecubital area, using aseptic technique. 19:52 CT Stroke Brain w/o Contrast In Process Unspecified. EDMS 19:56 CT Head Angio In Process Unspecified. EDMS 19:56 CT Neck Angio In Process Unspecified. EDMS 20:08 Triage completed. ea 20:09 Patient has correct armband on for positive identification. ea 20:09 Arm band placed on right wrist. Patient placed in an exam room, on a stretcher, on ea pulse oximetry. 20:10 Chinyere Ye, LISA is Primary Nurse. ea 20:15 Stroke CXR 1 View In Process Unspecified. EDMS 21:31 Mukesh Ly MD is Hospitalizing Provider. rn 21:54 Patient admitted, IV remains in place. ea Administered Medications: 20:30 Drug: ACTIvase (alteplase) {Co-Signature: em (Db Muhammad RN).} Route: IV ea Thrombolytics; Rate: calculated rate; Infused Over: 60 mins; 21:31 Follow up: Response: No adverse reaction ea Outcome: 21:32 Decision to Hospitalize by Provider. rn 21:54 Admitted to ER Hold. [facility]. ea 21:54 Condition: stable 21:54 Instructed on the need for admit, Demonstrated understanding of instructions. 11/21 21:23 Patient left the ED. ea NIH Stroke Scale - NIH Stroke Score Date: 11/20/2020 Time: 19:49 Total Score = 17 1a. Level of Consciousness (LOC) - 0(Alert) 1b. Level of Consciousness (LOC) (Month \T\ Age) - 2(Neither) 1c. LOC Commands (Open \T\ Closes Eyes/It Help Desk Associate) - 2(Neither) 2. Best Gaze (Lateral Gaze Paresis) - 0(Normal) 3. Visual Field Loss - 0(No visual loss) 4. Facial Palsy - 2(Partial paralysis) 5a. Left Arm: Motor (10-second hold) - 0(No drift) 5b. Right Arm: Motor (10-second hold) - 3(No effort against gravity) 6a. Left Leg: Motor (5-second hold - always test supine) - 0(No drift) 6b. Right Leg: Motor (5-second hold - always test supine) - 3(No effort against gravity) 7. Limb Ataxia (finger/nose \T\ heel/talbert - test with eyes open) - 0(Absent) 8. Sensory Loss (pinprick arms/legs/face) - 0(Normal) 9. Best Language: Aphasia (description/naming/reading) - 3(Mute, global aphasia) 10. Dysarthria (speech clarity - read or repeat words) - 2(Severe) 11. Extinction and Inattention (visual/tactile/auditory/spatial/personal) - 0(No abnormality) Initials: rn NIH Stroke Scale - NIH Stroke Score Date: 11/20/2020 Time: 20:05 Total Score = 17 1a. Level of Consciousness (LOC) - 0(Alert) 1b. Level of Consciousness (LOC) (Month \T\ Age) - 2(Neither) 1c. LOC Commands (Open \T\ Closes Eyes/It Help Desk Associate) - 2(Neither) 2. Best Gaze (Lateral Gaze Paresis) - 0(Normal) 3. Visual Field Loss - 0(No visual loss) 4. Facial Palsy - 2(Partial paralysis) 5a. Left Arm: Motor (10-second hold) - 0(No drift) 5b. Right Arm: Motor (10-second hold) - 3(No effort against gravity) 6a. Left Leg: Motor (5-second hold - always test supine) - 0(No drift) 6b. Right Leg: Motor (5-second hold - always test supine) - 3(No effort against gravity) 7. Limb Ataxia (finger/nose \T\ heel/talbert - test with eyes open) - 0(Absent) 8. Sensory Loss (pinprick arms/legs/face) - 0(Normal) 9. Best Language: Aphasia (description/naming/reading) - 3(Mute, global aphasia) 10. Dysarthria (speech clarity - read or repeat words) - 2(Severe) 11. Extinction and Inattention (visual/tactile/auditory/spatial/personal) - 0(No abnormality) Initials: selam Signatures: Dispatcher [employer] Charles Titus MD MD rn Antunez, Elena, RN RN ea [place], [facility] Jameson Corrales RN wg Edgar Munoz RN em
[2020-11-20] MEDS ORDERED: NA CHLORIDE 0.9% 100 ML ONE (21:38)
[2020-11-20 22:58] VITALS: BMI 22.3
--- NOTE | 2020-11-20 23:27 | P.HP ---
Certification for Inpatient Patient admitted to: Inpatient With expected LOS: >2 Midnights Patient will require the following post-hospital care: None Practitioner: I am a practitioner with admitting privileges, knowledge of patient current condition, hospital course, and medical plan of care. Services: Services provided to patient in accordance with Admission requirements found in Title 42 Section 412.3 of the Code of Federal Regulations Patient History Date of Service: 11/20/20 Reason for admission: CVA History of Present Illness: Ms. Dawson is a 75 yo F with history of CVA and left sided hemiparesis, HTN, HLD who presents with AMS, aphasia and RUE and RLE weakness beginning today at 4pm. She also has left facial droop. Patient can speak at baseline, but today she had difficulty speaking which progressed to aphasia. Patient is still able to nod her head yes and shake her head no, but cannot follow commands. NIHSS 17. TPA was administered in the ED with minor improvement in symptoms. is refusing transfer to [facility]. CT HEAD WO CONTRAST IMPRESSION: No intracranial hemorrhage is present and no acute cortical based infarction identifiable. Patient has significant right cerebral encephalomalacia from prior CVA in 2017. There is significant superimposed chronic ischemic change. Dense arterial tree calcifications are present. CT HEAD ANGIO IMPRESSION: Dilated basilar artery with mural thrombus filling the proximal and midportion of the artery causing 70% stenosis. When comparing prior studies is believed to be chronic disease and not an acute basilar artery process. Truncated right middle cerebral artery at the M1 segment with few small anterior right middle cerebral branches still intact and a few small branches supplying the superior aspect of the right parietal lobe. This pattern is not unexpected given prior CVA involving a large portion of the right cerebral hemisphere. Back affect internal carotid arteries with dense arterial tree calcifications. Significant luminal narrowing or acute finding not identified. CT NECK ANGIO IMPRESSION: Negative CT angio neck examination for acute or significant finding. Allergies atorvastatin calcium [From Lipitor] Adverse Reaction (Verified 10/06/14 09:34) muscle cramps prednisone Adverse Reaction (Verified 10/06/14 09:34) swelling Home Medications: Aspirin [Aspirin EC 81 MG] 81 mg PO DAILY #30 tablet. 10/02/19 Ezetimibe 1 tab PO DAILY 10/02/19 Famotidine 1 tab PO BEDTIME 10/02/19 Gabapentin 1 tab PO BEDTIME 10/02/19 Lisinopril [Zestril] 1 tab PO DAILY 10/02/19 Lovastatin 1 tab PO BEDTIME 10/02/19 Solifenacin Succinate [Vesicare] 1 tab PO DAILY 10/02/19 - Past Medical/Surgical History Diabetic: No -: Osteoarthritis -: Hypertension -: Asthma -: Varicose veins -: Hyperlipidemia -: CVA -: fibroid cysts remove bilat breasts -: left elbow surg. -: appendectomy at 12 yrs of age -: right hand surg-laceration Psychosocial/ Personal History: She is , has no children. She retired. - Family History Father -: Heart disease Notes: mother-malignant lymphoma - Social History Smoking Status: Unknown if ever smoked Alcohol use: No CD- Drugs: No Caffeine use: No Place of Residence: Home Review of Systems is unable to be obtained Neurological: Weakness, Change in Speech, Confusion Physical Examination - Physical Exam General: Alert, In no apparent distress HEENT: Atraumatic, PERRLA, Mucous membr. moist/pink, EOMI, Sclerae nonicteric Neck: Supple, 2+ carotid pulse no bruit, No LAD, Without JVD or thyroid abnormality Respiratory: Normal air movement, Rhonchi/gurgles Cardiovascular: No edema, Regular rate/rhythm, Normal S1 S2 Gastrointestinal: Normal bowel sounds, No tenderness Musculoskeletal: No tenderness Integumentary: No rashes Neurological: Abnormal gait, Abnormal speech, Abnormal strength, Abnormal sensation, Abnormal cranial nerve function, Abnormal affect Lymphatics: No axilla or inguinal lymphadenopathy - Studies Laboratory Data (last 24 hrs) 11/20/20 19:35: PT 13.2 H, INR 1.15, APTT 24.7 11/20/20 19:35: WBC 10.80, Hgb 14.4, Hct 42.8, Plt Count 244 11/20/20 19:35: Sodium 142, Potassium 4.4, BUN 23 H, Creatinine 0.73, Glucose 89 Assessment and Plan - Problems (Diagnosis) (1) CVA (cerebral vascular accident) Current Visit: Yes Status: Acute Qualifiers: CVA mechanism: unspecified Qualified Code(s): I63.9 - Cerebral infarction, unspecified (2) Left hemiparesis Current Visit: Yes Status: Chronic (3) Weakness Current Visit: Yes Status: Acute (4) Aphasia Current Visit: Yes Status: Acute (5) Hyperlipidemia Current Visit: No Status: Chronic Qualifiers: Hyperlipidemia type: other hyperlipidemia (6) Hypertension Current Visit: No Status: Chronic Qualifiers: Hypertension type: essential hypertension Qualified Code(s): I10 - Essential (primary) hypertension - Plan neurology consulted, on tele NPO, gentle IVF hydration, speech and PT consulted repeat CT Head after 24 hours, MRI Stroke in the AM, ECHO in the AM Neurochecks q6hr DVT ppx Discharge Plan: Home Plan to discharge in: 48 Hours - Advance Directives Does patient have a Living Will: No Does patient have a Durable POA for Healthcare: No - Code Status/Comfort Care Code Status Assessed: Yes (DNR) Critical Care: Yes Time Spent Managing Pts Care (In Minutes): 70
[2020-11-20] MEDS ORDERED: ONDANSETRON 4 MG/2 ML VIAL IV PRN (23:38)
[2020-11-20] MEDS ORDERED: ACETAMINOPHEN 500 MG TAB PO PRN (23:38)
[2020-11-20] MEDS: NA CHLORIDE 0.9% 1,000 ML IV SCH (23:38)
[2020-11-21] MEDS ORDERED: NA CHLORIDE 0.9% 1,000 ML ONE ×3 (00:25→15:02)
[2020-11-21] MEDS ORDERED: ACETAMINOPHEN 650MG/RECT SUPP PR ONE ×2 (01:05→01:09)
[2020-11-21 05:26] LABS: Absolute Lymphocytes (CBC) 1.1 K/uL (0.7-4.9); Basophils % 0.5 % (0-1.3); Hematocrit 41.2 % (36.0-45.0); Lymphocytes % 6.7 % (15.3-44.8); MPV 7.8 fL (7.6-11.3); RBC Red Blood Cell Count 4.55 M/uL (3.86-4.86)
[2020-11-21 05:29] LABS: Protime INR 1.15
[2020-11-21 06:20] LABS: ALT/SGPT 44 U/L (12-78); AST/SGOT 24 U/L (15-37); Alkaline Phosphatase 64 U/L (45-117); BUN Blood Urea Nitrogen 19 mg/dL (7-18); Bicarbonate 21 mmol/L (21-32); Bilirubin Total 0.9 mg/dL (0.2-1.0); Glucose Level 143 mg/dL (74-106); HDL Cholesterol 54 mg/dL (40-60); LDL Cholesterol, Calculated 95 (<130); Magnesium 1.9 mg/dL (1.8-2.4); Phosphorus 2.5 mg/dL (2.5-4.9); Potassium 4.1 mmol/L (3.5-5.1); Protein, Total 6.5 g/dL (6.4-8.2); Sodium Level 140 mmol/L (136-145)
[2020-11-21] MEDS: INSULIN -REGULAR HUMAN 50 UNIT/0.5 ML ML SQ SCH ×4 (07:30→21:00)
[2020-11-21] MEDS ORDERED: FOLIC ACID 1 MG TABLET PO SCH (09:00)
--- NOTE | 2020-11-21 09:09 | RAD REPORT ---
EXAM DESCRIPTION: MRI - MRA Neck W/Wo Cont - 11/21/2020 8:52 am CLINICAL HISTORY: CVA COMPARISON: CT head November 20, CT angio neck November 20, MRI/ MRA head November 21 TECHNIQUE: MR angiography of the cervical vasculature performed. Coronal imaging plane acquisition u tilized. A 13 MultiHance contrast volume was utilized. Coronal reformatted images were generated and reviewed. Vertical axis 3D rotational projections obtained using maximum intensity projection protoco l. FINDINGS: Aortic arch is 3 vessel configuration with no origins stenosis. Vertebral artery origins a re tortuous but without stenosis. Bilateral common carotid and internal carotid arteries show no dissection, stenosis or significant at herosclerotic changes from origin to skullbase. No subclavian artery abnormality seen. IMPRESSION: MRA neck examination shows no significant or suspicious finding. Distal most left vertebral artery and basilar artery are detailed on separate report.
--- NOTE | 2020-11-21 09:17 | RAD REPORT ---
EXAM DESCRIPTION: MRI - Brain W/Wo Cont - 11/21/2020 8:51 am CLINICAL HISTORY: CVA COMPARISON: Head angio dated 11/20/2020; Ct Stroke Brain Wo Cont dated 11/20/2020; Ct Stroke Brain Wo Cont dated 06/16/2016 TECHNIQUE: Sagittal and axial T1-weighted images were obtained. Axial PD/heavily T2-weighted and T2- FLAIR images were obtained along with axial DWI/ADC mapping sequences. Coronal heavily T2 weighted s equence obtained. Axial and coronal post-contrast T1-weighted images were also obtained. A 13 ml Mul tihance contrast following utilized. FINDINGS: No intracranial hemorrhage is present. No mass effect, edema or shift of midline structure s. Diffusion imaging shows abnormal restricted diffusion in the jose just left of midline measuring 2.8 cm AP x 1.0 cm TR x 2.5 cm CC. This has corresponding diminished signal on ADC mapping. There is mary tional extensive chronic ischemic change seen throughout the jose. No cerebral or cerebellar acute infarction changes are present. There is a large area of encephalomal acia involving the superior aspect of the temporal lobe extending posteriorly into the posterolateral left occipital lobe. Small portion of the parietal lobe is involved as well. This is zaidi CVA dubose e. Significant chronic ischemic changes are present, right greater than left, in both cerebral hemisp heres. There is no edema or shift of midline structures. No extra-axial fluid collections. [place]-matter/white matter junction is preserved. Post-contrast images show normal enhancement. No dural thickening. Mastoid air cells and paranasal sinuses are clear. IMPRESSION: Moderately large acute/subacute nonhemorrhagic infarction in the jose left of midline. Large area of encephalomalacia in the right cerebral hemisphere from prior CVA detailed in 2017. Nat ent has additional superimposed atrophy and chronic ischemic change. There is extensive chronic ische sugey change in the jose of the brainstem in addition to the acute CVA. Vascular findings are detailed in separate report.
--- NOTE | 2020-11-21 10:06 | RAD REPORT ---
EXAM DESCRIPTION: MRI - MRA Head Wo Cont - 11/21/2020 9:43 am CLINICAL HISTORY: CVA COMPARISON: MRI brain same date, CT head November 20 TECHNIQUE: Axial and coronal 3D [id number] image acquisition was performed. 3D rotational images were generated with source and reconstruction images reviewed. Horizontal and vertical axis rotation al views generated using MIP protocol. FINDINGS: The horizontal and vertical petrous portions of each internal carotid artery show no signi ficant findings. The signal void centrally within the vessel on the horizontal portion is artifact. T his CTA head showed full opacification through these portions of the internal carotid arteries. Cavernous portions of each internal carotid artery shows ectasia up to 8 mm on the right and 9 mm on the left. Flow voids within the central portion of these vessels believed to be turbulent flow artifa ct. The prior day CTA showed no thrombosis or significant luminal narrowing. Supraclinoid portions of each internal carotid artery are prominent as well. No anterior cerebral artery significant finding. Anterior communicating artery is present. The left m iddle cerebral artery shows no stenosis, occlusion of a named branch or other suspicious finding. Distal most left vertebral artery is dilated to 6 mm. There is fusiform dilatation of the basilar art ignacio up to 12 mm in diameter sparing only the distal most basilar artery. There is a bulbous appearanc e to the tip of the basilar artery. This is believed to be normal variant rather than basilar tip ane urysm. Thrombus is present filling majority of the dilated basilar artery. This is estimated at least 70% stenosis. Neither posterior cerebral artery is well characterized on MRA imaging. This may be due to restricted or diminished flow. CT angio showed narrowing of the P1 segment left posterior cerebral artery with no significant right HYDRANT SETTER finding. The left MCA M1 and M2 branches are not identifiable on MRA imaging. Again, this is believed to be mo stly technical. On the CT angio of the left MCA vessels are well visualized with no named branch occl usion, vasculitis or stenosis. The M1 of right MCA is truncated on this examination. Similar finding was seen on the CT angio study with only a few small MCA branches extending into the frontal lobe and into the inferior right tempor al lobe. Far peripheral right MCA branches are not well visualized on either CTA or MRA imaging. Abse nce of these vessels not unexpected given the large area of encephalomalacia from the 2017 CVA. 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 Distal most left vertebral artery is dilated to 6 mm. Age of the thrombus is unknown. Basilar artery dilatation has been evident on more remote imaging. Ectasia of the bilateral distal internal carotid arteries without thrombosis. Truncated right middle cerebral artery M1 segment with only minimal amount of right MCA branches bethany ining in the frontal and inferior temporal lobe region. This finding would be expected given the larg e old right MCA infarction from 2017.
[2020-11-21] MEDS: NA CHLORIDE 0.9% 1,000 ML IV SCH (12:58)
--- NOTE | 2020-11-21 14:36 | RAD REPORT ---
EXAM DESCRIPTION: CT - Head Brain Wo Cont - 11/21/2020 2:28 pm CLINICAL HISTORY: post TPA administration Headache, drowsiness, CVA COMPARISON: Head angio dated 11/20/2020; Ct Stroke Brain Wo Cont dated 11/20/2020; Brain W/Wo Cont megan ed 11/21/2020; MRA Neck W/Wo Cont dated 11/21/2020; MRA Head Wo Cont dated 11/21/2020 TECHNIQUE: All CT scans are performed using dose optimization technique as appropriate and may inclu de automated exposure control or mA/KV adjustment according to patient size. FINDINGS: No intracranial hemorrhage, hydrocephalus or extra-axial fluid collection.Moderate brain a trophy is present.Evidence of old infarction is seen right frontotemporal region. Mild diminished den sity is seen in the left aspect of the jose compatible with known infarct in this region. No hemorrha gic conversion evident. [id number] arterial atherosclerotic disease. The paranasal sinuses and mastoids are clear. The calvarium is intact. IMPRESSION: No hemorrhage is seen. No midline shift evident.
--- NOTE | 2020-11-21 16:28 | ECHO ---
HEIGHT: 5 ft 4 in WEIGHT: 130 lb 0.106 oz DATE OF STUDY: 11/21/[address]: Jett Rodriguez 2-DIMENSIONAL: YES M.MODE: YES DOPPLER: YES COLOR FLOW: YES TDS: YES PORTABLE: YES DEFINITY: NO BUBBLE STUDY: NO DIAGNOSIS: STROKE CARDIAC HISTORY: CATHERIZATION: SURGERY: PROSTHETIC VALVE: PACEMAKER: MEASUREMENTS (cm) DIASTOLIC (NORMALS) SYSTOLIC (NORMALS) IVSd 1.1 (0.6-1.2) LA Diam 1.7 (1.9-4.0) LVEF 64% LVIDd 3.8 (3.5-5.7) LVIDs 2.5 (2.0-3.5) %FS 34% LVPWd 1.1 (0.6-1.2) Ao Diam 2.9 (2.0-3.7) 2 DIMENSIONAL ASSESSMENT: RIGHT ATRIUM: NORMAL LEFT ATRIUM: NORMAL RIGHT VENTRICLE: NORMAL LEFT VENTRICLE: NORMAL TRICUSPID VALVE: MITRAL VALVE: MITRAL ANNULAR CALCIFICATION PULMONIC VALVE: NORMAL AORTIC VALVE: NORMAL PERICARDIAL EFFUSION: SMALL AORTIC ROOT: NORMAL LEFT VENTRICULAR WALL MOTION: NORMAL DOPPLER/COLOR FLOW: SEE BELOW COMMENTS: NORMAL LEFT VENTRICULAR EJECTION FRACTION 60-65%. NORMAL WALL MOTION. MILD MIRTAL AND TRICUSPID REGURGITATION. TECHNOLOGIST: Whitney RENEE
--- NOTE | 2020-11-21 16:32 | P.PN ---
Subjective Date of Service: 11/21/20 Chief Complaint: CVA Patient not able to give any subjective complain. She appears to be weak on both her left and right sides. Physical Examination - Vital Signs Temperature: 98.4 F Blood Pressure: 150/82 Pulse: 82 Respirations: 23 Pulse Ox (%): 93 - Physical Exam General: Other (Nonverbal) HEENT: Mucous membr. moist/pink Neck: JVD not distended Respiratory: Normal air movement, Other (Bilateral upper airway transmitted sounds) Cardiovascular: No edema, Regular rate/rhythm Gastrointestinal: Normal bowel sounds, Soft and benign, Non-distended, No t enderness Musculoskeletal: Contractures (Left upper extremity) Integumentary: No rashes Neurological: Other (Weakness in both right and left sides. She withdrawals right leg to touch.) Lymphatics: No axilla or inguinal lymphadenopathy - Studies Laboratory Data (last 24 hrs) 11/20/20 19:35: PT 13.2 H, INR 1.15, APTT 24.7 11/20/20 19:35: WBC 10.80, Hgb 14.4, Hct 42.8, Plt Count 244 11/20/20 19:35: Sodium 142, Potassium 4.4, BUN 23 H, Creatinine 0.73, Glucose 89 Assessment And Plan - Current Problems (Diagnosis) (1) Acute CVA (cerebrovascular accident) Current Visit: Yes Status: Acute (2) Aphasia Current Visit: Yes Status: Acute - Plan Patient has quadriplegia. She is aphasic. 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 Patient with other significant cerebral vascular disease. I am told her refused transfer to [facility] for neurointerventionist evaluation. Poor functional capacity. She will also have poor quality of life. Patient seen by neurology. Hospice discussed with family and are open to hospice. Resume aspirin tonight. Statins Permissive hypertension. Speech to do swallow evaluation. Consult to social work therapist for arrangement for hospice.
--- NOTE | 2020-11-21 22:21 | CON ---
Reason For Consultation: Consultation called because of recent stroke. History Of Present Illness: Ms. Dawson is a 75-year-old patient with hypertension, dyslipidemia, an d a large right hemispheric stroke with chronic dense left hemiparesis. She reportedly developed rig ht-sided upper and lower extremity weakness, inability to speak and comprehend at some unknown time o n the 20 of November. As the time was unknown, when she came in, she was not a candidate for tiss ue plasminogen activator. Her head CT scan showed no acute ischemic or hemorrhagic change. The reji ent did have a large area of encephalomalacia in the right cerebral hemisphere and that was compared to the last scan done in 2017 and in addition it showed more chronic ischemic change in addition to t hat. CT angiogram of the head and neck did show a dilated basal artery with mural thrombus filling t he proximal and midportion of the artery causing 70% stenosis. This is felt to be chronic and not an acute finding. There is a truncated right middle cerebral artery at M1 segment with few anterior an d right middle cerebral artery branches intact, few branches by the superior aspect of the right carlos etal lobe and the pattern is consistent with a very large right hemispheric stroke. CT angiogram of the neck showed no significant abnormalities in the common carotids, carotid bulbs and left vertebral artery is dominant. Subsequent brain MRI identified an acute to subacute 2.5 x 1 x 2.5 cm area of e xtensive ischemic change seen in the jose. There was a large area of encephalomalacia in the right c erebral hemisphere along with a moderately large subacute to acute hemorrhagic infarct in the jose, l eft of the midline. Magnetic resonance angiogram of the head showed fusiform aneurysmal dilatation o f the basal artery up to 12 mm with a thrombus filling the lumen at the 70%, age of the thrombus seem s to be more remote and truncated right middle cerebral artery at M1. Her echocardiogram showed ejec tion fraction of 64% with mild mitral and tricuspid regurgitation. Laboratory studies show elevated white count of 16.3 with 83% neutrophils and a chest x-ray did show no acute cardiopulmonary issues, although the patient is unable to swallow because of aspiration. This case was discussed with the alvaro lee's on the phone. Given the chronic large stroke affecting the right brain and left body and this new stroke affecting the left brain and right body, she is unable to perform functions such as swallow, move arms and legs and has a very poor prognosis for any significant recovery. Past Medical History: As noted. Varicose veins. Allergies: LIPITOR AND PREDNISONE. Medications: At home lisinopril. Family History: Noncontributory Social History: No alcohol, tobacco, or IV drug use. Review of Systems: Not obtainable. Physical Examination: Vital Signs: Blood pressure 135/66, pulse 72, respiratory rate 18, temperature 98.4, oxygen saturati on 97%. Weight 130 pounds, height 5 feet 4 inches. GENERAL: Ms. Dawson is lying in bed. She does try to blink when instructed. She tried to move her head, but was unable to, could not move her arms or legs per command. No spontaneous movement was o bserved in the legs and arms. Cranial nerves of both areas of the face did not show movement when as ked to. She just had minimal eye movement, left to right, minimal blinking. Her arms and legs showe d no voluntary movement and had mildly increased tone on the right with markedly and decreased on the left from her chronic stroke, hyperreflexia in the left compared to the right side. Unable to do an y coordination or gait examination as this patient is unable to do those activities. Assessment: Ms. Dawson is a 75-year-old patient with multiple strokes involving of bilateral brain. She has a chronic right hemispheric stroke with dense left hemiparesis and new large left brainstem stroke with right hemiparesis, inability to protect her airway and inability to form any words, only has eye movements. She has a very poor prognosis for any significant recovery. Plan: At this point, hospice is the best option. The patient's was told of this and she lakshmi l be back tomorrow and hospice orders will be put in place for her to go home for comfort care and hospice. HAYES/ABBY Voice ID: [id number] Report ID: [id number]
[2020-11-22 00:09] LABS: T4,Total 8.9 ug/dL (4.8-13.9)
[2020-11-22 02:25] VITALS: O2SAT 95
[2020-11-22] MEDS: NA CHLORIDE 0.9% 1,000 ML IV SCH (03:59)
[2020-11-22 05:24] LABS: Basophils % 0.3 % (0-1.3); Hematocrit 37.6 % (36.0-45.0); Lymphocytes % 7.9 % (15.3-44.8); MPV 7.2 fL (7.6-11.3); RBC Red Blood Cell Count 4.07 M/uL (3.86-4.86)
[2020-11-22 05:34] LABS: Protime INR 1.29
[2020-11-22] MEDS ORDERED: INSULIN -REGULAR HUMAN 50 UNIT/0.5 ML ML SQ SCH (06:00)
[2020-11-22 12:48] VITALS: BP 144/66; TEMP 98
--- NOTE | 2020-11-22 12:48 | P.DS ---
Admission Date: 11/20/20 Discharge Date: 11/22/20 Disposition: HOSPICE-MEDICAL FACILITY Discharge Condition: SERIOUS Reason for Admission: CVA Consultations: Neurology - Dr. Quiñones Procedures: MRI FINDINGS: No intracranial hemorrhage is present. No mass effect, edema or shift of midline structures. Diffusion imaging shows abnormal restricted diffusion in the jose just left of midline measuring 2.8 cm AP x 1.0 cm TR x 2.5 cm CC. This has corresponding diminished signal on ADC mapping. There is additional extensive chronic ischemic change seen throughout the jose. No cerebral or cerebellar acute infarction changes are present. There is a large area of encephalomalacia involving the superior aspect of the temporal lobe extending posteriorly into the posterolateral left occipital lobe. Small portion of the parietal lobe is involved as well. This is zaidi CVA change. Significant chronic ischemic changes are present, right greater than left, in both cerebral hemispheres. There is no edema or shift of midline structures. No extra-axial fluid collections. [place]-matter/white matter junction is preserved. Post-contrast images show normal enhancement. No dural thickening. Mastoid air cells and paranasal sinuses are clear. IMPRESSION: Moderately large acute/subacute nonhemorrhagic infarction in the jose left of midline. Large area of encephalomalacia in the right cerebral hemisphere from prior CVA detailed in 2017. Patient has additional superimposed atrophy and chronic ischemic change. There is extensive chronic ischemic change in the jose of the brainstem in addition to the acute CVA. Vascular findings are detailed in separate report. Problem list Acute CVA with hemiplegia, aphasia History of CVA with hemiplegia Hypertension Hyperlipidemia Brief History of Present Illness: 75 yo F with history of CVA and left sided hemiparesis, HTN, HLD who presents with AMS, aphasia and RUE and RLE weakness beginning today at 4pm. She also has left facial droop. Patient can speak at baseline, but today she had difficulty speaking which progressed to aphasia. Patient is still able to nod her head yes and shake her head no, but cannot follow commands. NIHSS 17. TPA was administered in the ED with minor improvement in symptoms. is refusing transfer to [place]. Hospital Course: Patient was found to have new acute stroke. She now had significant deficits throughout both sides of her body. Long discussion was had with the patient's . He stated the patient would not want to continue to live like this. Patient was able to blink and agreed. Patient was transferred to inpatient hospice service per their request. Advance care planning and CODE STATUS was reviewed with patient's . Time spent: 30 minutes. Decided on DNR to pursue hospice, okay with home or inpatient, tremors most appropriate for the patient. Vital Signs/Physical Exam: Temp Pulse Resp BP Pulse Ox 98.0 F 73 20 144/66 H 93 11/22/20 12:00 11/22/20 12:00 11/22/20 12:00 11/22/20 12:00 11/22/20 12:00 General: Other (Awake, aphasic) HEENT: Sclerae nonicteric Respiratory: Diminished, Other (Weak cough) Cardiovascular: No edema, Regular rate/rhythm Gastrointestinal: Soft and benign, Non-distended, No tenderness Musculoskeletal: No tenderness Integumentary: No rashes Neurological: Other (Aphasic, only able to wiggle left side toes slightly) Laboratory Data at Discharge: WBC 12.60 K/uL (4.3-10.9) H D 11/22/20 05:07 Hgb 12.5 g/dL (12.0-15.0) 11/22/20 05:07 Hct 37.6 % (36.0-45.0) 11/22/20 05:07 Plt Count 190 K/uL (152-406) 11/22/20 05:07 PT 14.9 SECONDS (9.5-12.5) H 11/22/20 05:07 INR 1.29 11/22/20 05:07 APTT 23.8 SECONDS (24.3-36.9) L 11/22/20 05:07 Sodium 140 mmol/L (136-145) 11/21/20 04:45 Potassium 4.1 mmol/L (3.5-5.1) 11/21/20 04:45 BUN 19 mg/dL (7-18) H 11/21/20 04:45 Creatinine 0.64 mg/dL (0.55-1.3) 11/21/20 04:45 Glucose 143 mg/dL (74-106) H 11/21/20 04:45 Phosphorus 2.5 mg/dL (2.5-4.9) 11/21/20 04:45 Magnesium 1.9 mg/dL (1.8-2.4) 11/21/20 04:45 Total Bilirubin 0.9 mg/dL (0.2-1.0) 11/21/20 04:45 AST 24 U/L (15-37) 11/21/20 04:45 ALT 44 U/L (12-78) 11/21/20 04:45 Alkaline Phosphatase 64 U/L (45-117) 11/21/20 04:45 Triglycerides 69 mg/dL (<150) 11/21/20 04:45 Cholesterol 163 mg/dL (<200) 11/21/20 04:45 HDL Cholesterol 54 mg/dL (40-60) 11/21/20 04:45 Cholesterol/HDL Ratio 3.02 11/21/20 04:45 Home Medications: Aspirin [Aspirin EC 81 MG] 81 mg PO DAILY #30 tablet. 10/02/19 Ezetimibe 1 tab PO DAILY 10/02/19 Famotidine 1 tab PO BEDTIME 10/02/19 Gabapentin 1 tab PO BEDTIME 10/02/19 Lisinopril [Zestril] 1 tab PO DAILY 10/02/19 Lovastatin 1 tab PO BEDTIME 10/02/19 Solifenacin Succinate [Vesicare] 1 tab PO DAILY 10/02/19 Followup: NONE,NONE [Primary Care Provider] - Time spent managing pt's care (in minutes): 40
== END 2020-11-22 13:34 | disposition hospice, inpatient (51) | DRG 61 ==
LOC: ER 19:41 → ERHOLD 21:33 → 2ND 11-21 20:41
PROVIDERS: ADMIT Internal Medicine; ATTEND Internal Medicine
DX: I63.9 Cerebral infarction, unspecified (principal); G82.50 Quadriplegia, unspecified; G81.91 Hemiplegia, unspecified affecting right dominant side; I69.354 Hemiplegia and hemiparesis following cerebral infarction affecting left non-dominant side; R47.01 Aphasia; I10 Essential (primary) hypertension; E78.5 Hyperlipidemia, unspecified; R29.717 NIHSS score 17; Z66 Do not resuscitate; Z20.822 Contact with and (suspected) exposure to COVID-19
CPT/HCPCS: 36415; 70450; 70496; 70498; 70544; 70549; 70553; 71045; 80048; 80053; 80061; 82947; 83735; 84100; 84436; 84443; 84484; 85025; 85610; 85730; 92977; 93005; 93306; 94760; 97110; 97161; 99291; A9577; J2997; J7030; Q9967; U0003

== ENCOUNTER 2020-11-22 13:39 | Inpatient (IN) | payer OTHER ==
[2020-11-22] MEDS ORDERED: MORPHINE 2 MG/ML SYR IV PRN (14:41)
[2020-11-22] MEDS ORDERED: ACETAMINOPHEN 650MG/RECT SUPP PR PRN (14:43)
[2020-11-22] MEDS ORDERED: BISACODYL 10 MG RECTAL SUPP PR PRN (14:43)
[2020-11-22] MEDS ORDERED: ONDANSETRON 4 MG/2 ML VIAL IV PRN (14:43)
[2020-11-22] MEDS ORDERED: SCOPOLAMINE HYDROBROMIDE PATCH TD SCH (16:00)
[2020-11-23] MEDS: LORazepam 2 MG/ML VIAL IV PRN (23:38)
[2020-11-24] MEDS: LORazepam 2 MG/ML VIAL IV PRN ×2 (05:07→11:02)
[2020-11-24 20:52] VITALS: BP 144/82
[2020-11-25] MEDS: LORazepam 2 MG/ML VIAL IV PRN (02:54)
[2020-11-25 08:43] VITALS: TEMP 99.6
[2020-11-25 08:48] VITALS: O2SAT 78
== END 2020-11-25 14:09 | disposition hospice, home (50) | DRG 951 ==
LOC: 2ND 13:39
PROVIDERS: ADMIT Internal Medicine Hematology & Oncology; ATTEND Internal Medicine Hematology & Oncology
DX: Z51.5 Encounter for palliative care (principal); I63.9 Cerebral infarction, unspecified
CPT/HCPCS: 92610